=== PATIENT | female | born 1990 | race Caucasian/White ===

== ENCOUNTER → 2021-01-07 16:09 | Outpatient (CLI) | payer OTHER, SELFPAY ==
[2021-01-09 18:25] LABS: H. pylori Breath Test Negative (Negative)
== END ==
PROVIDERS: Visit Provider Nurse Practitioner Family
DX: R10.13 Epigastric pain (principal); R11.2 Nausea with vomiting, unspecified
CPT/HCPCS: 83013

== ENCOUNTER 2021-08-29 12:02 | Emergency (ER) | payer OTHER, SELFPAY ==
[2021-08-29 14:13] VITALS: BP 146/76; PULSE 87; RESP 18; TEMP 37; O2SAT 100; BMI 42.9
--- NOTE | 2021-08-29 14:32 | HMH.EDUTC ---
[facility] [place] Clinical Impression: Bronchitis, Viral syndrome Pharyngitis Qualifiers: Pharyngitis/tonsillitis etiology: unspecified etiology Qualified Code(s): J02.9 - Acute pharyngitis, unspecified Disposition: Home, Self-Care Condition on Discharge: Good Instructions: DI for Pharyngitis/Tonsillopharyngitis -- Adult, DI for Acute Bronchitis, DI for COVID-19 (Suspected or Confirmed ), Preventing the Spread of Coronavirus Discharge Instructions Additional Instructions: Drink plenty of fluids. Take tylenol or ibuprofen for pain or fever. Take the medications as directed. Follow up with your regular doctor. GO TO THE ER FOR ANY WORSENING SYMPTOMS Quarantine until you know the results of your covid-19 test. If it is positive, the health department should call you and give you further instructions about your length of Quarantine and other things. Notify your school or workplace of your results and follow their instructions regarding return to work/school. Prescriptions: Brompheniramine/Pseudoephed/Dm [Bromfed Dm Cough Syrup] 5 ml PO Q6HP PRN #240 ml PRN Reason: Cough [id number] methylPREDNISolone [Medrol] 4 mg PO DIRECTED 6 Days #21 packet Transmission Status: [id number] Azithromycin [Z-Jamir 250mg Tab*] 250 mg PO UD DOSE PK #6 tab Transmission Status: [id number] Referrals: Edita Randolph APRN [Primary Care Provider] - Time of Disposition: 15:20 Medical Decision Making - Medical Records Medical records reviewed: No: I reviewed the patient's medical records. - Juno Inquiry Pt receiving controlled substance: No Vital Signs: 08/29/21 14:13 08/29/21 15:02 Temperature 98.6 F 98.6 F Temperature Source Oral Pulse Rate 87 Pulse Rate [Left] 87 Respiratory Rate 18 18 Blood Pressure 146/76 H Blood Pressure [Right Arm] 146/76 H Blood Pressure Mean [Right Arm] 99 02 Sat by Pulse Oximetry 100 - Lab Data Lab results reviewed: Yes: I reviewed the patient's lab results. Lab Results 08/29/21 15:01: Strep Scn Rapid Clinic Negative Orders (Tests/Meds): ORDERS Category Date Time Status Covid-19 Nasal PCR ([facility]) Routine Lab 08/29/21 14:08 Received Strep Screen Confirmation Routine Micro 08/29/21 15:01 Received [facility] UTC HPI - General Stated complaint: sinus congestion Time Seen by Provider: 08/29/21 14:32 Mode of Arrival: Ambulatory Source of Information: Patient Limitations: No Limitations Description of Symptoms (Recalled from Triage Doc. by RN): pt c/o a sinus drainage/congestion and cough. direct exposure to covid. HEENT Symptoms (Recalled from RN notes): Yes (nasal drainage and congestion) Resp Symptoms (Recalled from RN notes): No Skin Symptoms (Recalled from RN notes): No MS Symptoms (Recalled from RN notes): No Functional Status (Recalled from RN notes): na - History of Present Illness Provider Complaint: She has had sore throat, sinus congestion, and a cough for the past 2 days. She has had chilling but no documented fever. - Related Data Previous Rx's Medication Instructions Recorded Azithromycin [Z-Jamir 250mg Tab*] 250 mg PO UD DOSE PK #6 tab 08/29/21 Brompheniramine/Pseudoephed/Dm 5 ml PO Q6HP PRN #240 ml 08/29/21 [Bromfed Dm Cough Syrup] methylPREDNISolone [Medrol] 4 mg PO DIRECTED 6 Days #21 08/29/21 packet Allergies Allergy/AdvReac Type Severity Reaction Status Date / Time No Known Allergies Allergy Verified 08/29/21 15:00 - Worker's Comp Is this a Worker's Comp case?: No [facility] History - Hepatitis A Screen Drug use history?: No High risk sexual behaviors?: No History of sexually transmitted infection?: No Currently employed?: No Childcare worker?: No Do you have indoor plumbing?: Yes Do you have electricity?: Yes Attestation statement:: This patient has been screened for Hepatitis A risk factors. I have reviewed the patient's past
[2021-08-29 15:02] VITALS: BP 146/76; PULSE 87; RESP 18; TEMP 37
[2021-08-29 15:11] LABS: UTC Strep Screen (Rapid) Negative (Negative)
== END 2021-08-29 15:32 | disposition home or self-care (01) ==
PROVIDERS: Emergency Provider Nurse Practitioner Family; PCP Nurse Practitioner Family
DX: J20.9 Acute bronchitis, unspecified (principal); Z20.822 Contact with and (suspected) exposure to COVID-19
CPT/HCPCS: 87880; 99203; C9803; G0463; U0003; U0005

== ENCOUNTER 2024-12-29 04:19 | Emergency (ER) | payer OTHER, SELFPAY ==
[2024-12-29 04:35] VITALS: BP 120/65; PULSE 109; RESP 20; TEMP 36.9; O2SAT 98; BMI 36.1
--- NOTE | 2024-12-29 04:36 | HMH.EDGENADL ---
Discharge Plan Disposition Patient Disposition: Home, Self-Care Prescriptions Prescriptions: No Action azithromycin 250 MG tablet 250 mg PO UD DOSE PK Qty: 6 0RF Rx Instructions: Take two (2) tablets today, then one (1) tablet days #2 thru #5 methylprednisolone 4 MG tablets,dose pack 4 mg PO DIRECTED 6 Days Qty: 21 0RF knqwnqljwynfhat-oavjndewt-VF 118 ML syrup 5 ml PO Q6HP PRN (Reason: Cough) Qty: 240 0RF Referrals Follow up/Referrals: Jacqueline Mccall APRN [Primary Care Provider] - See instructions Activity Restrictions/Add. Instructions Additional Instructions/Restrictions: Please follow-up with your primary care provider. Please return to the emergency department if you develop any new or worsening symptoms or become concerned for your health. Clinical Impressions Clinical Impression: Exposure to blood-borne pathogen Instructions Patient Instructions: DI for Skin Abscess Print Language Print Language: Occitan Discharge ED Provider: Fede Beckman General Adult HPI General Chief complaint: Skin/Abscess/Foreign Body Stated complaint: WC Right wrist injury 12/29/24 0330 Time Seen by Provider: 12/29/24 04:20 History of Present Illness HPI narrative: 34-year-old female without significant past medical history presents for blood-borne exposure. 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 The patient had dried blood under her fingers from injuring herself. The nurse has abrasion with broken skin as a result of the scratches. Related Data Previous Rx's ?Medication ?Instructions ?Recorded azithromycin 250 mg tablet 250 mg PO UD DOSE PK #6 tabs 08/29/21 mecaujafvfdomgy-vohpccfteigveyw-CZ 5 ml PO Q6HP PRN Cough #240 mL 08/29/21 2 mg-30 mg-10 mg/5 mL oral syrup methylprednisolone 4 mg tablets in 4 mg PO DIRECTED 6 days #21 08/29/21 a dose pack packets Allergies Allergy/AdvReac Type Severity Reaction Status Date / Time No Known Allergies Allergy Verified 08/29/21 15:00 [facility] Disclaimer: The information contained in this section may have been updated after the patient was seen, as this information can be updated by other users. Social History Smoking Status: Current every day smoker alcohol intake: never current occupational status: employed Travel in the last 8 weeks: None ROS Obtained: Yes All systems reviewed & no additional complaints except as documented Physical Exam General General appearance: alert and in no apparent distress Head Head exam: atraumatic and normocephalic Eye Eye exam: Present normal appearance, PERRL and EOMI ENT ENT exam: Present normal oropharynx and normal external ear exam Neck Neck exam: Present normal inspection and full ROM Chest Chest inspection: Present normal inspection and symmetric chest wall rise; Absent tenderness Respiratory Respiratory exam: Present normal lung sounds bilaterally; Absent respiratory distress Cardiovascular Cardiovascular exam: Present regular rate and normal rhythm Abdominal Exam Abdominal exam: Present soft; Absent distention, tenderness or guarding Extremities Exam Extremities exam: Present normal inspection; Absent edema or joint swelling Back Exam Back exam: Present normal inspection; Absent tenderness Neurological Exam Neurological exam: Present alert and oriented X3; Absent motor sensory deficit Psychiatric Psychiatric exam: Present normal affect and normal mood Skin Skin exam: Present warm, dry, normal color and other (Scratches/abrasions to the right wrist) Lymphatic Lymphatic Findings: no adenopathy Medical Decision Making Medical Records Medical records reviewed: Yes I reviewed the patient's medical records. Screening: Per USPSTF and CDC recommendations, given the prevalence of disease in our region, it is our hospital?s policy to screen for HIV and viral Hepatitis for all patients aged 18 and over and those with ongoing risk factors. Juno Inquiry Pt receiving controlled substance: No Juno was queried for this patient: No Vital Signs: 12/29/24 04:35 12/29/24 05:19 Temperature 98.5 F 98.5 F Temperature Source Oral Pulse Rate 109 H Pulse Rate [Right] 109 H Respiratory Rate 20 20 Blood Pressure 120/65 Blood Pressure [Right Arm] 120/65 Blood Pressure Mean [Right Arm] 83 02 Sat by Pulse Oximetry 98 Oxygen Delivery Method Room Air Room Air Lab Data Lab results reviewed: Yes I reviewed the patient's lab results. Lab Results 12/29/24 04:47: Urine Opiates Screen Negative, Urine Methadone Screen Negative, Ur Barbituates Screen Negative, Ur Phencyclidine Scrn Negative, Ur Amphetamines Screen Negative, U Benzodiazepines Scrn Negative, Urine Cocaine Screen Negative, U Marijuana (THC) Screen Negative 12/29/24 04:57: WBC 9.7, RBC 5.07, Hgb 14.8, Hct 43.3, MCV 85.4, MCH 29.2, MCHC 34.2, RDW 12.7, Plt Count 409, MPV 9.9, Neut % (Auto) 69.7, Lymph % (Auto) 23.9, [place] % (Auto) 5.2, Eos % (Auto) 0.7, Baso % (Auto) 0.3, Neut # (Auto) 6.7, Lymph # (Auto) 2.3, [place] # (Auto) 0.5, Eos # (Auto) 0.1, Baso # (Auto) 0.0, PT 11.6, INR 1.04, APTT 31.3 H, Sodium 137, Potassium 3.7, Chloride 105, Carbon Dioxide 22, Anion Gap 13.7, BUN 10, Creatinine 0.70, Estimated Creat Clear 162, Estimated GFR 95, Est GFR ( Amer) 115, Glucose 91, Calcium 9.7, Total Bilirubin 0.5, AST 46 H, ALT 19, Alkaline Phosphatase 101, Total Protein 7.9, Albumin 4.9, Globulin 3.0, Albumin/Globulin Ratio 1.6, HCV Ab ABDIFATAH w/Rflx PCR Qn Negative, HIV Ag/Ab Combo Qual Negative 12/29/24 04:57 12/29/24 04:57 Orders (Tests/Meds): ED MEDICATIONS Discontinued Medications Generic Name Dose Route Start Last Admin Trade Name Freq PRN Reason Stop Dose Admin Tetanus/Reduced Diphtheria/Acell Pertussis 0.5 ml 12/29/24 05:22 12/29/24 05:30 Tet/Diphth/Pert-Adult 0.5ml Syringe IM 12/29/24 05:23 0.5 ml .ONCE ONE Administration ORDERS Category Date Time Status CBC w/Auto Diff [Complete Blood Count Auto Diff] Stat Lab 12/29/24 04:57 Completed CMP [Comprehensive Metabolic Panel] Stat Lab 12/29/24 04:57 Completed HIV Combo Routine Lab 12/29/24 04:57 Completed Hep B Surface Ab, Qual Stat Lab 12/29/24 04:57 Received Hepatitis B surface antigen screen [HBsAg Screen] Stat Lab 12/29/24 04:57 Received Hepatitis C Ab Qual. W/ RFX Stat Lab 12/29/24 04:57 Completed PT INR [Prothrombin Time INR] Stat Lab 12/29/24 04:57 Completed PTT [Activated Partial Thrombo Time] Stat Lab 12/29/24 04:57 Completed UDS [Drug Screen,Urine] Stat Lab 12/29/24 04:47 Completed Medical Decision Narrative: 34-year-old female with nonsignificant past medical history presents for possible blood-borne exposure after being scratched by patient with blood under her fingernail. History was obtained via interactive discussion with patient. On arrival, patient is [afebrile, hemodynamically stable, satting appropriately, alert, oriented x4, GCS 15], moving all extremities spontaneously. Full physical exam performed and significant for abrasions/scratches with some broken skin to the right wrist. Patient reports that she has up-to-date on hepatitis B vaccination, but does not know if she is up-to-date on tetanus. Differential includes but is not limited to HIV hep B hepatitis C tetanus. Per report, the patient was treated for hepatitis C in the past. No history of HIV or hepatitis B is known, her current viral status is unknown. Patient was given Tdap for symptomatic management and correction of underlying abnormalities. Workup initiated including CBC CMP PT PTT HIV and hepatitis screenings, UDS per protocol.. On re-evaluation, patient [remains afebrile, HD stable.] Laboratory workup independently interpreted by me and significant for no significant leukocytosis, normal coags, minimally elevated AST, UDS negative, viral screens negative. Given patient history, exam and workup, patient's presentation most likely represents possible blood-borne exposure. I had a interact discussion with patient regarding her presentation and workup. Recommend she follow-up with her PCP, no indication for postexposure prophylaxis at this time. The results of the offending patient's blood work also needs to be followed up.. Procedures Risk/Benefits of Procedure(s) Were Explained: Yes Critical Care Critical Care Time Critical Care Time: No
[2024-12-29 05:04] LABS: Barbiturates Screen,Urine Negative ng/ml (<200); Benzodiazepines Screen,Urine Negative ng/ml (<200)
[2024-12-29 05:05] LABS: Amphetamine/Metha Screen,Urine Negative ng/ml (<1000)
[2024-12-29 05:06] LABS: Basophils % 0.3 % (0.1-2.0); Eosinophils # 0.1 K/mm3 (0.0-0.4); Eosinophils % 0.7 % (0.1-12.0); Hematocrit 43.3 % (37.0-47.0); Hemoglobin 14.8 g/dL (12.2-16.2); Lymphocytes # 2.3 K/mm3 (0.7-4.5); Lymphocytes % 23.9 % (10-50); Mean Corpuscular HGB Conc 34.2 g/dL (31.8-35.4); Mean Corpuscular Hemoglobin 29.2 pg (27.0-31.2); Mean Corpuscular Volume 85.4 fl (81-99); Mean Platelet Volume 9.9 fl (7.4-10.4); Monocytes # 0.5 K/mm3 (0.1-1.0); Monocytes % 5.2 % (1.7-9.3); Neutrophils # 6.7 K/mm3 (1.8-7.8); Neutrophils % 69.7 % (37.0-80.0); Platelet Count 409 K/mm3 (142-424); Red Blood Count 5.07 M/mm3 (4.20-5.40); Red Cell Distribution Width 12.7 % (11.5-17.5); White Blood Count 9.7 K/mm3 (4.8-10.8)
[2024-12-29 05:06] LABS: Cannabinoid Screen,Urine Negative ng/ml (<50); Cocaine Screen,Urine Negative ng/ml (<300)
[2024-12-29 05:07] LABS: Methadone Screen,Urine Negative ng/ml (<300)
[2024-12-29 05:08] LABS: Opiate Screen,Urine Negative ng/ml (<300); Phencyclidine Screen,Urine Negative ng/ml (<25)
[2024-12-29 05:13] LABS: Albumin Level 4.9 g/dl (3.5-5.0); Chloride 105 mmol/L (98-107)
[2024-12-29 05:14] LABS: Potassium 3.7 mmoL/L (3.5-5.1); Sodium 137 mmol/L (136-145)
[2024-12-29 05:16] LABS: Alanine Aminotransferase 19 U/L (12-78); Albumin/Globulin Ratio 1.6 (1.1-1.8); Alkaline Phosphatase 101 U/L (38-126); Anion Gap 13.7 mEq/L (5-15); Aspartate Amino Transferase 46 U/L (14-36); Bilirubin,Total 0.5 mg/dl (0.2-1.3); Blood Urea Nitrogen 10 mg/dl (7-17); Carbon Dioxide 22 mmol/L (22.0-30.0); Creatinine Clearance Estimated 162 mL/min (50-200); Estimated Glomerular Filt Rate 95 ml/min (>60); GFR (African American) 115 ML/MIN (>60); Total Protein,Serum 7.9 g/dl (6.3-8.2)
[2024-12-29 05:17] LABS: Calcium 9.7 mg/dl (8.4-10.2); Glucose 91 mg/dl (74-100)
[2024-12-29 05:18] LABS: Activated Partial Thrombo Time 31.3 seconds (22.8-30.6); INR 1.04 (0.9-1.1); Prothrombin Time 11.6 seconds (10.1-12.5)
[2024-12-29 05:19] VITALS: BP 120/65; PULSE 109; RESP 20; TEMP 36.9; O2SAT 98
[2024-12-29] MEDS: TET/DIPHTH/PERT-ADULT 0.5ML SYRINGE 0.5 ML IM (05:30)
[2024-12-29 06:06] LABS: HIV Combo NEGATIVE (Negative)
[2024-12-29 06:13] LABS: Hepatitis C Ab Qual. W/ RFX NEGATIVE (Negative)
[2024-12-30 11:25] LABS: Hep B Surface Ab, Qual Non Reactive (.); Hepatitis B Surface Antigen Negative (Negative)
== END 2024-12-29 05:31 | disposition home or self-care (01) ==
PROVIDERS: Emergency Provider Emergency Medicine; PCP Nurse Practitioner Family
DX: Z77.21 Contact with and (suspected) exposure to potentially hazardous body fluids (principal); Z23 Encounter for immunization
CPT/HCPCS: 80053; 80307; 85025; 85610; 85730; 86706; 86803; 87340; 87389; 90471; 90715; 99283

== ENCOUNTER 2025-04-20 13:11 | Outpatient (CLI) | payer OTHER, SELFPAY ==
[2025-04-20 22:13] LABS: Coronavirus 19, PCR Not Detected (NotDetected); Human Rhinovirus Not Detected (NotDetected); Influenza A, PCR Not Detected (NotDetected); Influenza B, PCR Not Detected (NotDetected); Respiratory Syncytial Virus Not Detected (NotDetected)
--- OUTSIDE RECORDS SUMMARY | 2025-04-22 13:16 | XMS_ITS | Data Portability ---
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 [facility] ([facility]) [address] [facility], [place], [address], 06/04/2024 07:07:51 08/21/2008/22/2024 NUSWA B VAGIN ITIS PLUS (VG+) atopobium vaginae Low - 0 score Not Available [facility] ([facility]) [address] [facility], [place], [address], 08/22/2024 22:07:28 08/21/2008/22/2024 NUSWA B VAGIN ITIS PLUS (VG+) bvab 2 Low - 0 score Not Available [facility] ([facility]) [address] [place], [address], 08/22/2024 22:07:28 08/21/2008/22/2024 NUSWA B VAGIN ITIS PLUS (VG+) megasphaera 1 Low - 0 score Calcu late total score by marilee lopez the 3 indiv idual bacte rial vagin osis (BV) marke r score s toget her. Total score is inter prete d as follo ws: Total score 0-1: Indic ates the absen ce of BV. Total score 2: Indet ermin ate for BV. Addit ional clini kezia data stephanyul d be evalu ated to estab estefanía christian ostyler. Total score 3-6: Indic ates the prese nce of BV. Not Available [facility] ([facility]) [address] [facility], [place], [address], 08/22/2024 22:07:28 08/21/2008/22/2024 NUSWA B VAGIN ITIS PLUS (VG+) rishabh albicans, TYLER Negati ve negati ve Not Available [facility] ([facility]) [address] [place], [address], 08/22/2024 22:07:28 08/21/2008/22/2024 NUSWA B VAGIN ITIS PLUS (VG+) rishabh glabrata, TYLER Negati ve negati ve Not Available [facility] ([facility]) [address] [place], [address], 08/22/2024 22:07:28 08/21/2008/22/2024 NUSWA B VAGIN ITIS PLUS (VG+) trich vag by TYLER Negati ve negati ve Not Available [facility] ([facility]) [address] [place], [address], 08/22/2024 22:07:28 08/21/2008/22/2024 NUSWA B VAGIN ITIS PLUS (VG+) chlamydia trachomatis, TYLER Negati ve negati ve Not Available [facility] ([facility]) [address] [place], [address], 08/22/2024 22:07:28 08/21/2008/22/2024 NUSWA B VAGIN ITIS PLUS (VG+) neisseria gonorrhoeae, TYLER Negati ve negati ve Not Available [facility] ([facility]) [address] [place], [address], 08/22/2024 22:07:28 08/21/20 08/22/2024 IGP, APTIM A HPV, RFX 16/18 ,45 HPV aptima Negati ve negati ve This nucle ic acid ampli ficat ion test detec ts fourt een high- risk HPV types (16,1 8,31, 33,35 ,39,4 5,51, 52,56 ,58,5 9,66, 68) witho ut diffe renti ation . Not Available [facility] ([facility]) [address] [facility], [place], [address], 08/28/2024 16:15:20 08/21/20 24 08/28/2024 IGP, APTIM A HPV, RFX 16/18 ,45 diagnosis: Commen t NEGAT MARLIN FOR INTRA EPITH ELIAL LESIO N OR MALIG YUE . SPECI MEN REPRO CESSE D FOR INTER PRETA TION USING GLACI AL ACETI C ACID (GAA) . Not Available [facility] ([facility]) [address] [facility], [place], [address], 08/28/2024 16:15:20 08/21/20 24 08/28/2024 IGP, APTIM A HPV, RFX 16/18 ,45 specimen adequacy: Commen t Satis facto ry for evalu ation . Endoc ervic al and/o r squam ous metap lasti c cells (endo cervi kezia compo nent) are prese nt. Areas of parti ally obscu ring blood are prese nt. Not Available [facility] ([facility]) [address] [facility], [place], [address], 08/28/2024 16:15:20 08/21/20 24 08/28/2024 IGP, APTIM A HPV, RFX 16/18 ,45 clinician provided ICD10: Commen t Z12.4 Not Available [facility] ([facility]) [address] [facility], [place], [address], 08/28/2024 16:15:20 08/21/20 24 08/28/2024 IGP, APTIM A HPV, RFX 16/18 ,45 performed by: iNck Ramos ws, Cytot monico mendoza (ASCP ) Not Available [facility] ([facility]) [address] [place], [address], 08/28/2024 16:15:20 08/21/20 24 08/28/2024 IGP, APTIM A HPV, RFX 16/18 ,45 . . Not Available [facility] ([facility]) [address] [place], [address], 08/28/2024 16:15:20 08/21/20 24 08/28/2024 IGP, APTIM A HPV, RFX 16/18 ,45 note: Nick mendoza The Pap smear is a scree ac test desig mauricio to aid in the detec tion of shruthi ligna nt and malig nant condi tions of the uteri ne cervi x. It is not a diagn ostic proce dure and shoul d not be used as the sole means of detec ting cervi kezia cance r. Both false -posi tive and false -nega tive repor ts do occur . Not Available [facility] ([facility]) [address] [facility], [place], [address], 08/28/2024 16:15:20 08/21/20 24 08/28/2024 IGP, APTIM A HPV, RFX 16/18 ,45 test methodology: Nick mendoza This liqui d based ThinP rep(R ) pap test was scree mauricio with the use of an image guide radha aguero. Not Available [facility] ([facility]) [address] [place], [address], 08/28/2024 16:15:20 08/21/20 24 08/28/2024 IGP, APTIM A HPV, RFX 16/18 ,45 HPV genotype reflex Ncik mendoza Crite melissa not met, HPV Genot ype not perfo rmed. Not Available [facility] ([facility]) [address] [facility], [place], [address], 08/28/2024 16:15:20 Result Notes None recorded. Problems Name Problem SNOMED Code Status Onset Date Resolution Date Notes Provider Name and Address Organization Details Recorded Time Anxiety disorder 695475907 Active 2023 Jacqueline Mccall, [employer] [address], [place], [address], [place] - [facility] 4 10:09:52 Depressive disorder 58171072 Active 2023 Avtorimakenna Rolandfantasmagus, [employer] [address], [place], [address], [place] [facility] 4 10:10:01 Prediabetes 106454914 Active 2023 Avtorimakenna Mccall, [employer] [address], [place], [address], [place] [facility] 4 10:10:10 Vaginal odor 984235656 Active 2023 Shara SheehanCAROLINAN [address], [place], [address], [place] [facility] 4 15:24:04 Body mass index 40+ - severely obese 896178321 Active 2023 Shara KumarckerCAROLINAN [address], [place], [address], [place] [facility] 4 15:24:36 Hypertensive disorder 48180919 Active 2023 Shara AguilaCAROLINA cartwrightN [address], [place], [address], [place] [facility] 4 15:24:54 Problem Notes None recorded. Procedures Surgical History Date Name Laterality Status Provider Name and Address Organization Details Recorded Time 08/21/20 24 Date of Last Pap Smear completed Shara Sheehan APRN [address], [place], [address], [place] - [facility] 08/28/2024 16:33:13 08/28/20 17 Nexplanon Removal completed Shara Sheehan APRN [address], [place], [address], [place] [facility] 08/28/2017 15:23:17 07/31/20 17 IUD Insertion (Mirena) completed Shara Sheehan, [employer] [address], [place], [address], [facility] - [facility] 07/31/2017 13:44:57 07/31/20 17 IUD Insertion completed Jasmin Drake [place] - [facility] 08/21/2024 14:21:05 12/22/19 16 Contraceptive Implant Insertion completed Dilciayamileth Patton [employer] [address], [place], [address], [facility] - [facility] 04/18/2017 15:51:51 12/09/19 14 Caesarean Section completed Shara Aguila, [employer] [address], [place], [address], [facility] 08/21/2024 14:33:00 12/09/19 14 delivery completed Rayna Conner [place] - [facility] 04/20/2017 10:39:07 Imaging Results None recorded. Procedure Notes None recorded. Medical Equipment None Reported. Allergies No known drug allergies Medications Name Sig Start Date Stop Date Status Note LastModified by Organization Details LastModified Time amoxicill in 500 mg capsule take 1 capsule (500 mg) by oral route every 8 hours for 10 days 09/25 completed amoxicil romeo 500 mg oral capsule; Recorded Status: Recorded on: 05/04/20 10 3:12PM;D iscontin ued Status: Disconti nued on: 09/25/20 12 1:33PM;U ser: poczatek b;Est. Completi on: 05/14/20 10;Indic ation: Acute Bacteria l Sinusiti s - (4619 );Prin rylan: 05/04/20 10 Not Available Not Available Not Available Mirena 21 mcg/24 hr (up to 8 years) 52 mg intrauter ine device Take 1 device by intraute rine route. 2016 active Not Available Not Available Not Avai lable azithromy wendi 250 mg tablet TAKE 2 TABLETS BY MOUTH ON DAY 1, AND THEN TAKE 1 TABLET BY MOUTH ONCE A DAY ON DAY 2 THROUGH DAY 5 06/03 completed Not Available Not Available Not Available glyburide 5 mg tablet take 1 tablet (5 mg) by oral route once daily before breakfas t 01/22 completed glyburid e 5 mg oral tablet;R ecorded Status: Recorded on: 11/06/19 14 2:09PM;D iscontin ued Status: Disconti nued on: 01/23/20 14 10:08AM; User: osmany ;Indicat ion: Gestatio nal Diabetes ,antepar bella - (648.83) ;Printed : 11/06/19 14 Not Available Not Available Not Available Flonase 50 mcg/actua tion nasal spray,chavo pension inhale 1 spray in each nostril by intranas al route once daily for 30 days 09/25 completed Flonase 50 mcg/actu ation nasal spray,najera spension ;Recorde d Status: Recorded on: 05/04/20 10 3:12PM;D iscontin ued Status: Disconti nued on: 09/25/20 12 1:33PM;U ser: poczatek b;Est. Completi on: 11/30/19 11;Print ed: 05/04/20 10 Not Available Not Available Not Available phentermi ne 37.5 mg tablet TAKE 1 TABLET BY MOUTH ONCE DAILY 08/19 completed Not Available Not Available Not Available prednison e 10 mg tablets in a dose pack 07/17 completed Not Available Not Available Not Available meloxicam 7.5 mg tablet 07/17 completed Not Available Not Available Not Available lancets use as directed 01/22 completed lancets; Recorded Status: Recorded on: 09/23/20 13 3:40PM;D iscontin ued Status: Disconti nued on: 01/23/20 14 10:08AM; User: [facility]; Est. Completi on: 01/22/20 14;Indic ation: - (-5);Lizabeth nted: 09/23/20 13 Not Available Not Available Not Available Depo-Prov era 150 mg/mL intramusc ular suspensio n inject 150 mg by intramus cular route every 3 months for 90 days 12/30 completed Depo-Pro vera 150 mg/mL intramus cular suspensi on;Presc ribe Status: Prescrib ed on: 08/19/20 15 4:27PM;D iscontin ued Status: Disconti nued on: 12/31/19 16 4:37PM;U ser: melba; Est. Completi on: 11/17/19 16;Pharm acyVerif ied: 08/19/20 15 4:27PM Not Available Not Available Not Available dicyclomi ne 20 mg tablet 07/17 completed Not Available Not Available Not Available calcipotr iene 0.005 % topical cream 07/17 completed Not Available Not Available Not Available lisinopri l 10 mg tablet TAKE ONE TABLET BY MOUTH EVERY DAY 2024 active Not Available Not Available Not Avai lable promethaz ine 25 mg tablet 07/17 completed Not Available Not Available Not Available bupropion HCl 75 mg tablet TAKE ONE TABLET BY MOUTH TWICE DAILY FOR ANXIETY 2024 active Not Available Not Available Not Avai lable alcohol swabs use prior to testing 01/22 completed alcohol swabs Topical Pads, Medicate d;Record ed Status: Recorded on: 09/23/20 13 3:40PM;D iscontin ued Status: Disconti nued on: 01/23/20 14 10:08AM; User: [email or web address]; Est. Completi on: 01/22/20 14;Print ed: 09/23/20 13 Not Available Not Available Not Available methylpre dnisolone 4 mg tablets in a dose pack TAKE BY MOUTH DIRECTED ON INSIDE OF PACKAGE 08/19 completed Not Available Not Available Not Available brompheni ramine-ps eudoephed rine-DM 2 mg-30 mg-10 mg/5 mL oral syrup TAKE 10 ML BY MOUTH EVERY 12 HOURS 06/03 completed Not Available Not Available Not Available ondansetr on 4 mg disintegr ating tablet 07/17 completed Not Available Not Available Not Available cefdinir 300 mg capsule 07/17 completed Not Available Not Available Not Available metformin ER 500 mg tablet,ex tended release 24 hr TAKE ONE TABLET BY MOUTH EVERY DAY 2024 active Not Available Not Available Not Avai lable amoxicill in 875 mg-potass ium clavulana te 125 mg tablet take 1 tablet by oral route every 12 hours for 10 days 07/17 completed Not Available Not Available Not Available Shayla Perle 100 mg capsule take 1-2 capsules by oral route 3 times a day as needed 09/25 completed Replaced /Retired Drug 100 mg oral capsule; Recorded Status: Recorded on: 05/04/20 10 3:12PM;D iscontin ued Status: Disconti nued on: 09/25/20 12 1:33PM;U ser: poczatek b;Indica tion: Cough - (16.7862 00);Prin rylan: 05/04/20 10 Not Available Not Available Not Available Test Strips test fasting, 2 hours after breakfas t, lunch and supper 01/22 completed Test strips;R ecorded Status: Recorded on: 09/23/20 13 3:40PM;D iscontin ued Status: Disconti nued on: 01/23/20 14 10:08AM; User: [facility]; Est. Completi on: 01/22/20 14;Indic ation: - (-5);Lizabeth nted: 09/23/20 13 Not Available Not Available Not Available Depo-Prov era 150 mg/mL intramusc ular syringe inject 1 millilit er (150 mg) by intramus cular route every 3 months 05/04 completed Depo-Pro vera 150 mg/mL intramus cular syringe; Recorded Status: Recorded on: 11/05/19 10 10:24AM; Disconti nued Status: Disconti nued on: 05/04/20 10 2:59PM;U ser: [email or web address] Not Available Not Available Not Available 11/11 (21) 1 mg-20 mcg tablet 07/17 completed Not Available Not Available Not Available Ortho-Cyc leonela (28) 0.25 mg-35 mcg tablet take 1 tablet by oral route once daily 09/25 completed Ortho-Cy clen (28) 0.25-35 mg-mcg oral tablet;R ecorded Status: Recorded on: 05/04/20 10 2:59PM;D iscontin ued Status: Disconti nued on: 09/25/20 12 1:33PM;U ser: hamptona ;Indicat ion: Pregnanc y Contrace ption - (18.V259 00) Not Available Not Available Not Available nitrofura ntoin monohydra te/macroc rystals 100 mg capsule 07/17 completed Not Available Not Available Not Available 27 mg iron-0.8 mg tablet take 1 tablet by oral route once daily 04/21 completed 27-0.8 mg oral tablet;R ecorded Status: Recorded on: 04/24/20 13 11:07AM; Disconti nued Status: Disconti nued on: 04/21/20 14 11:26AM; User: [email or web address];In dication : Pregnanc y - (18.V222 00) Not Available Not Available Not Available Glucomete r-M use as directed 01/22 completed Glucomet er;Recor ded Status: Recorded on: 09/23/20 13 3:40PM;D iscontin ued Status: Disconti nued on: 01/23/20 14 10:08AM; User: [facility]; Est. Completi on: 12/23/19 14;Indic ation: - (-5);Lizabeth nted: 09/23/20 13 Not Available Not Available Not Available Nexplanon 68 mg subdermal implant implant 1 by subderma l route every 3 years 08/28 completed Nexplano n 68 mg subderma l implant; Recorded Status: Recorded on: 12/09/19 16 4:27PM;U ser: youngk;I ndicatio n: Contrace ption counseli ng: Initiati on of contrace ptive implant prescrip tion - (V25.02) Not Available Not Available Not Available melatonin 1 mg sublingua l tablet Place 1 tablet every day by sublingu al route as needed. 08/19 completed Not Available Not Available Not Available Ozempic 0.25 mg or 0.5 mg (2 mg/1.5 mL) subcutane ous pen injector Inject 0.25 mg every week by subcutan eous route. 02/05 completed Not Available Not Available Not Available Ozempic 0.25 mg or 0.5 mg (2 mg/3 mL) subcutane ous pen injector 02/05 completed Not Available Not Available Not Available Vitals Date Recorded Body height Body mass index (BMI) Body weight Body temperature Heart rate Oxygen saturation Oxygen saturation in Arterial blood by Pulse oximetry Respiratory rate Systolic And Diastolic Provider Name and Address Organization Details Last Updated DateTime 4 165.1 cm 45.3 kg/m2 536994. 12 g 97.8 [degF] 78 /min 97 % 97 % 18 /min 132/76 mm[Hg] Amber Stears [place] - [facility] 4 09:06:28 Date Recorded Body height Body mass index (BMI) Body weight Body temperature Heart rate Oxygen saturation Oxygen saturation in Arterial blood by Pulse oximetry Respiratory rate Systolic And Diastolic Provider Name and Address Organization Details Last Updated DateTime 4 165.1 cm 44.3 kg/m2 357045. 57 g 96.6 [degF] 82 /min 98 % 98 % 18 /min 122/84 mm[Hg] Sandra Gillis [facility] 4 09:32:53 Date Recorded Body height Body mass index (BMI) Body weight Heart rate Oxygen saturation Oxygen saturation in Arterial blood by Pulse oximetry Respiratory rate Systolic And Diastolic Provider Name and Address Organization Details Last Updated DateTime 4 165.1 cm 43.6 kg/m2 380556. 2 g 88 /min 98 % 98 % 18 /min 128/80 mm[Hg] Sandra Gillis [facility] 4 08:31:42 Date Recorded Body height Body mass index (BMI) Body weight Body temperature Heart rate Respiratory rate Oxygen saturation Oxygen saturation in Arterial blood by Pulse oximetry Systolic And Diastolic Provider Name and Address Organization Details Last Updated DateTime 4 165.1 cm 42.6 kg/m2 196237. 65 g 97.8 [degF] 90 /min 18 /min 98 % 98 % 134/82 mm[Hg] Amber Stears [place] - [facility] 4 13:25:00 Date Recorded Body height Body mass index (BMI) Body weight Systolic And Diastolic Provider Name and Address Organization Details Last Updated DateTime 08/21/2024 165.1 cm 40.1 kg/m2 108059.76 g 130/86 mm[Hg] Jasmin Drake [place] - [facility] 08/21/2024 14:19:12 Social History Question Answer Notes LastModified by Organizat ion Details LastModified Time Tobacco Smoking Status Former Smoker maria l [place] - [facility] 07/17/2017 14:35:17 Do You Have An Advance Directive? No Information not available 07/17/2017 Are You Blind Or Do You Have Difficulty Seeing? No Information not available 11/21/2023 Is Blood Transfusion Acceptable In An Emergency? Yes Information not available 07/17/2017 What Is Your Level Of Caffeine Consumption? Heavy Information not available 07/17/2017 How Much Tobacco Do You Chew? None Information not available 07/17/2017 Are You Deaf Or Do You Have Serious Difficulty Hearing? No Information not available 11/21/2023 What Type Of Diet Are You Following? REGULAR Information not available 07/17/2017 Which Illicit Or Recreational Drugs Have You Used? Denies Information not available 07/17/2017 What Is The Highest Grade Or Level Of School You Have Completed Or The Highest Degree You Have Received? [id number] [email or web address] Information not available 08/21/2024 Have There Been Any Changes To Your Family Or Social Situation? No Information no t available 11/21/2023 What Is The Fluoride Status Of Your Home? Unknown Information not available 11/21/2023 When Did You Quit Smoking? 6-10yearssi [email or web address] rette Information not available 11/21/2023 Live Alone Or With Others? With Others Information not available 07/17/2017 Do You Have A Medical Power Of Logging Specialist? No Information not available 11/21/2023 What Was The Date Of Your Most Recent Tobacco Screening? 11/21/2023 Information not available 11/21/2023 How Many Children Do You Have? 1 Information not available 07/17/2017 What Is Your Current Pack Years? 10-19packye ars Information not available 11/21/2023 Performs Monthly Self-breast Exam? Yes Information no t available 07/17/2017 Do You Use Protection Against STDs? No [email or web address] Information not available 08/21/2024 What Is Your Relationship Status? Information not available 07/17/2017 Do You Use Your Seat Belt Or Car Seat Routinely? Yes [email or web address] Information not available 08/21/2024 Seat Belts Used Routinely Yes Information not available 07/17/2017 Are You Sexually Active? Yes Information not available 07/17/2017 Do You Have Smoke And Carbon Monoxide Detectors In Your Home? Yes Information not available 11/21/2023 At What Age Did You Start Smoking Tobacco? 13 Information not available 11/21/2023 Are You Passively Exposed To Smoke? No [email or web address] Information no t available 08/21/2024 How Much Tobacco Do You Smoke? No Information not available 11/21/2023 Do You Use Sunscreen Routinely? Yes Information not available 07/17/2017 Has Tobacco Cessation Counseling Been Provided? No Information not available 11/21/2023 How Many Years Have You Smoked Tobacco? 12 Age 13 To 25 [email or web address] Information not available 04/20/2017 Do You Have Difficulty Walking Or Climbing Stairs? No Information not available 11/21/2023 How Many Years Have You Used E-cigarettes Or Vape? 8 Information not available 11/21/2023 Sex: Female Functional Status Question Answer Note LastModified by Organizat ion Details LastModified Time How many times per week do you consume alcohol? Less than 1 time per week Information not available 11/21/2023 Do you or have you ever used smokeless tobacco? Never used smokeless tobacco Information not available 11/21/2023 Are you currently employed? Yes Information not available 07/17/2017 Do you have transportation difficulties? No Information not available 11/21/2023 Are you able to care for yourself? Yes Information n ot available 11/21/2023 Do you have difficulty dressing or bathing? No Information not available 11/21/2023 Do you or have you ever used e-cigarettes or vape? Current user of electronic cigarettes Information not available 11/21/2023 What is your exercise level? None Information not available 07/17/2017 Do you use any illicit or recreational drugs? No Information not available 11/21/2023 Do you or have you ever used any other forms of tobacco or nicotine? Yes Information not available 11/21/2023 What is your level of alcohol consumption? None [email or web address] Information not available 08/21/2024 Are you able to walk? YESWOREST Information not available 07/17/2017 Do you have difficulty doing errands alone? No Information not available 11/21/2023 What is your occupation? [employer] Information not available 11/21/2023 Mental Status Question Answer Note LastModified by Organizat ion Details LastModified Time Do you feel stressed (tense, restless, nervous, or anxious, or unable to sleep at night)? [id number] [email or web address] Information not available 08/21/2024 Do you have difficulty concentrating, remembering or making decisions? No Information no t available 11/21/2023 Family History Relationship Description Onset Age of this Age Resolved Age Notes LastModified by Organization Details LastModified Time Father Family history of diabetes mellitus [email or web address] Not available 2023 14:32:34 Father Family history of Hypertension [email or web address] Not available 14:32:34 Father Family history of Myocardial infarction [email or web address] Not available 08/21 14:32:34 Father Hypertensive disorder Not available 2023 14:32:34 Paternal Grandfather Family history of diabetes mellitus [email or web address] Not available 2023 14:32:34 Mother Arthritis [email or web address] Not availab le 08/21/2024 14:32:34 Medical History Condition Response Depression Y Obesity Y Hypercholesterolemia Y Diabetes Y Hypertension Y Gynecological History Statement/Question Response Abnormal Pap Y Flow Light Date of LMP 08/08/2024 Post Menopausal Bleeding N STIs/STDs N HPV Vaccine N Duration of Flow (days) 6 Current Control Method IUD Age at Menarche 10 Age at First Child 24 Last Annual Exam/Provider 08/21/24 w/DT Sexually Active? Y Date of Last Cervical Culture 08/21/2024 Menses Monthly Y Date of Last Pap Smear 08/21/2024 Sexual Problems? N LMP Approximate Hormone Replacement Therapy N Obstetrics History GPAL:G 2 P 1 0 1 1 Type Value Full Term 1 Spontaneous 1 Living 1 Total 2 Immunizations Vaccine Type Date Status Note Provider Nam e and Address Organization Details Recorded Time COVID-19, mRNA, LNP-S, PF, 50 mcg/0.5 mL dose 2 completed Sandra beaulieu, NUSRAT - [facility] 08/19/2022 13:58:36 influenza, unspecified formulation 4 completed Not Available [facility] 12/04/2023 09:17:39 Influenza, split virus, quadrivalent, PF 2 completed Sandra Gillis null, NUSRAT - [facility] 08/19/2022 10:33:32 COVID-19 vaccine, vector-nr, rS-Ad26, PF, 0.5 mL 1 completed Sandra beaulieu, [place] - [facility] 08/19/2022 10:33:32 Past Encounters Encounter ID Performer Location Encounter Start Date Encounter Closed Date Diagnosis/Indication Diagnosis SNOMED-CT Code Diagnosis ICD10 Code Diagnosis Note [id number] [facility] [address] [place] [address] 02/21/2005 00:00:00 [id number] [facility] [address] [place] [address] 05/30/2005 00:00:00 [id number] [facility] [address] [place] [address] 06/13/2005 00:00:00 [id number] [facility] [address] [place] [address] 07/19/2005 00:00:00 [id number] [facility] [address] [place] [address] 08/24/2005 00:00:00 [id number] [facility] [address] [place] [address] 08/31/2005 00:00:00 [id number] [facility] [address] [place] [address] 12/06/2007 00:00:00 [id number] [facility] [address] [place] [address] 11/05/2009 00:00:00 [id number] [facility] [address] [place] [address] 05/04/2010 00:00:00 [id number] [facility] [address] [place] [address] 09/25/2012 00:00:00 [id number] [facility] [address] [place] [address] 02/11/2013 00:00:00 [id number] [facility] [address] [place] [address] 02/21/2013 00:00:00 [id number] [facility] [address] [place] [address] 03/04/2013 00:00:00 [id number] [facility] [address] [place] [address] 04/24/2013 00:00:00 [id number] [facility] [address] [place] [address] 06/19/2013 00:00:00 [id number] [facility] [address] [place] [address] 12/17/2013 00:00:00 [id number] [facility] [address] [place] [address] 01/22/2014 00:00:00 [id number] [facility] [address] [place] [address] 04/21/2014 00:00:00 [id number] [facility] [address] [place] [address] 04/21/2014 00:00:00 [id number] [facility] [address] [place] [address] 10/29/2014 00:00:00 [id number] [facility] [address] [place] [address] 12/09/2015 00:00:00 [id number] [facility] [address] [place] [address] 12/31/2015 00:00:00 [id number] [facility] [address] [place] [address] 02/01/2016 00:00:00 [id number] KARON Carroll HOUSEHOLD ASSISTANT [address] [place] [address] N[place]AT [place]oto [address] 07/17/2017 14:23:51 07/17/2017 15:33:37 Irregular periods 25908232 N92.6 Contracept ion care management 864625156 Z30.[address]; plans removal d/t irregular bleeding and plan Mirena insertion [id number] KARON Carroll HOUSEHOLD ASSISTANT [address] [place] [address] [place] [address] 07/31/2017 13:07:21 07/31/2017 13:46:50 Insertion of intrauterine contraceptive device 14682041 Z30.913 [id number] KARON Carroll HOUSEHOLD ASSISTANT [address] [place] [address] [place] [address] 08/28/2017 12:44:17 08/28/2017 15:03:38 IUD check 026422809 Z30.[address] Removal of subcutaneous contraceptive done 2112220787 03293 Z30.46 Nexplanon removed [id number] Jacqueline Mccall APRN [address] [address] 08/19/2022 10:01:37 08/19/2022 11:41:55 History and physical examination, sports participation 683143890 Z02.5 Administra tion of SARS-CoV-2 antigen vaccine 497571589 Z23 [id number] Jacqueline Mccall [address] [address] 11/21/2023 07:59:17 11/21/2023 10:05:53 Anxiety 57725475 F41.9 Patient identified triggers for anxiety and impact of anxious thinking on functionin g. Discussed strategies to regulate symptoms and need for compliance with treatment. discussed med in detail. any issues or thoughts go to ed coco. discussed her calling for therapy appointmen t. Hypertensive disorder 38 835152 I10 labskeep log bring to next appointmen t Unintentio nal weight gain 0014425152 18232 R63.5 [id number] Jacqueline Mccall [address] [address] 12/04/2023 09:17:24 12/04/2023 10:08:28 Depressive disorder 40282515 F32.A Prediabetes 313772676 R7 3.03 discussed diet and medication in detail with pt Anxiety 79411481 F41.9 Patient identified triggers for anxiety and impact of anxious thinking on functionin g. Discussed strategies to regulate symptoms and need for compliance with treatment. discussed med in detail. any issues or thoughts go to ed coco. discussed her calling for therapy appointmen t. [id number] Jacqueline Mccall [address] [address] 02/06/2024 08:14:41 02/06/2024 09:12:00 Prediabetes 747417261 R73.03 discussed diet and medication in detail with pt Anxiety 40478773 F41.9 Patient identified triggers for anxiety and impact of anxious thinking on functionin g. Discussed strategies to regulate symptoms and need for compliance with treatment. discussed med in detail. any issues or thoughts go to ed coco. discussed her calling for therapy appointmen t. [id number] Jacqueline Mccall [address] [address] 06/03/2024 13:08:39 06/03/2024 14:18:53 Prediabetes 411052674 R73.03 discussed diet and medication in detail with pt Anxiety disorder 1667055 06 F41.9 Hypertensive disorder 38 309365 I10 labskeep log bring to next appointmen t [id number] KARON Carroll HOUSEHOLD ASSISTANT [address] [facility] [place] [address] 08/21/2024 14:08:44 08/21/2024 15:07:00 Counseling 187233680 Z71.82 Exercise beth perez Patient encouraged to exercise 30 minutes 5 days a week. Examinatio n of blood pressure 258649916 Z01.30 Routine gy necologic examination done 6387429741 9101 Z01.419 Depression screening 171 536668 Z13.31 Screening for malignant neoplasm of cervix 744723639 Z12.4 Diet education 67600951 Z71.3 Encourage healthy eating/dec reased fats, sugars, fried foods Screening for malignant neoplasm of breast 859287930 Z12.31 Contracept ion care management 462726084 Z30.[address]; due for removal 07/2025 Vaginal odor 214661631 N 89.8 Body mass index 40+ - severely obese 722261267 Z68.41 Morbid obesity 132986486 E66.01 Hypertensive disorder 38 843589 I10 Depressive disorder 3548 9007 F32.A Vaccination declined 455 5371021 Z28.21 Seasonal flu vaccine offered and declined Health Concerns Section Related Observation LastModified by Organization Detai ls LastModified Time None Recorded Concern Status LastModified by Organization Details LastModified Time None Recorded Advance Directives Directive N: Payers Insurance Date Sequence Insurance Name Policy Number Policy Walsh Covered Member ID Walsh Member ID Guarantor Name 09/03/2024 2 [facility] (MEDICAID O) Zoey A Paul [id number] Zoey A Paul 09/03/2024 1 U[employer] [id number] Zoey A Paul [id number] Zoey A Paul 09/03/2024 [place] - [facility] (MEDICAID) [id number] Zoey A Paul [id number] Zoey A [place] 08/06/2024 1 [place] [id number] Zoey A [place] [id number] Zoey A [place] 08/06/2024 2 [place] [id number] Zoey A [place] [id number] Zoey A Paul Notes Date Note Type Note Provider Name and Address Organization Details Recorded Time 11/21/2023 text/html 33 year old femmakenna gardiner who presents to the office today with concerns ofAdult check upanxiety-has never been on medicine, pt states she worries alot, has problems when off work and sitting at home states she does not like sitting she will stay gone all long because she does not want to sat at home. pt states she becomes anxious when her daughter has to go to md her anxiety increases. BP high at times, states can feel it coming on when BP is high, has not been keeping log, pt states she thinks her anxiety could be causing it to go up. 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 and thought it would improve once she was done but she finished in december and anxiety has not improved.discuss weight gain Avtorimakenna RolandKARON timmons [address], [place], [address], [email or web address] - [facility] 11/21/2023 10:40:35 12/04/2023 text/html Anxiety/Depressi onR eported bypatient.Severity: denies suicidal ideations; able to maintain relationships; does not interfere with activities of daily living Context:no major life stressors Associated Symptoms:denies homicidal ideations; no significant weight gain; no significant weight loss; no visual/auditory hallucinations; no delusions; no shortness of breath; mood good; no anxiety; no crying spells; no panic; no isolation; sleeping well; appetite good; energy good; no apathy; maintaining functionality 33 yr old female presents to follow up on lab results and anxiety. She is doing well on wellbutrin and needs to increase. pt states she has been dieting and not eating any carbs but her glucose has been running 130's. Jacqueline Mccall APRN [address], [place], [address], [email or web address] - [facility] 12/04/2023 10:12:41 02/06/2024 text/html 33 yr old female presents for med refills and lab work. pt states she is doing well no issues at this time. Jacqueline KARON timmons [address], [place], [address], [email or web address] - [facility] 02/06/2024 08:59:59 06/03/2024 text/html 34 year old pippa gardiner who presents to the office today with concerns ofhypertension- states BP at home and at work have been 150's over 90's. also has concerns of headache, bad indigestion, states hands and feet have been cold when bp is elevated, states symptoms ok at this time.past 3 days have felt really bad Jacqueline Mccall, KARON [address], [place], [address], [place] - [facility] 06/03/2024 13:56:39 08/21/2024 text/html Annual - MOBReported bypatient.History:L ast annual exam: 2016; no gynecologic complaints; no change in interval history Current Contraception:Satis fied with current contraception; Intrauterine device (iud) Preventive measures:Encourage self breast examination; Encourage regular exercise; Encourage no tobacco use; Followed with Q3 year pap smear and high risk HPV typing; All immunization are currentNotes:Zoey rto for AWE. She has Mirena and thought it was due to be removed. Her IUD was placed 07/2017. I informed her of new indication for Mirena use of 8 years instead of 5. She is not having any problems with her device and is very pleased with light periods. Her has considered vasectomy, however, she may have a new Mirena placed in 1 year for bleeding control.She agrees to baseline screening mammogram.She reports increased vaginal discharge and intermittent odor after menses. Pt presents today to discuss the removal of her Mirena IUD. IUD was placed 07/2017 Shara Sheehan APRN [address], [place], [address], [place] - [facility] 08/21/2024 21:59:11 OBGyn Episode Ob Episode Information Episode Created Date Number of Fetuses Patient Bloodtype Patient rh Status Prepregnancy Weight lbs Domestic Partner Domestic Partner Phone Father Name Agricultural Inspector Status 04/20/20 17 1 CLOSED Fetus Data First Name Last Name Admitted to NICU Weight (g) Sex Living Outcome Pediatric Complications Fetus ID Race Codes Race Delivery Type , Spontane ous [id number] Valeriy Calculation Initial Valeriy Date Initial Exam Date Initial Exam Provider Initial Ultrasound Date Last Menstrual Period Date Ultra Sound Weeks Gestation 0 Eighteen To Twenty Week Valeriy Update Ultra Sound Date Fundal Height At Umbil Quickening Date Ultra Sound Latest Weeks Gestation Final Valeriy Confirmed By Final Valeriy Confirmed Date Final Valeriy Date Ultra Sound Latest Days Gestation 0 0 Menstrual History Last Menstrual Date Menses Monthly On Bcp Conception Prior Menses Frequency Hcg Plus Date Menarche Onset Age Delivery Information Delivery Date Delivery Type Labor Anesthesia Weeks Gestation Incision Type Labor Labor Length Hrs Delivered By Post Complications Tubal Sterilization Discharge Date Comments 3 SAB beta followedt o <2. mdr Discharge Information Feeding Method Contraceptive Method Maternal HG B and HCT Levels Ob Episode Information Episode Created Date Number of Fetuses Patient Bloodtype Patient rh Status Prepregnancy Weight lbs Domestic Partner Domestic Partner Phone Father Name Agricultural Inspector Status 04/20/20 17 1 CLOSED Fetus Data First Name Last Name Admitted to NICU Weight (g) Sex Living Outcome Pediatric Complications Fetus ID Race Codes Race Delivery Type 3259.96 [id number] F Full Term 5625 Valeriy Calculation Initial Valeryi Date Initial Exam Date Initial Exam Provider Initial Ultrasound Date Last Menstrual Period Date Ultra Sound Weeks Gestation 0 Eighteen To Twenty Week Valeriy Update Ultra Sound Date Fundal Height At Umbil Quickening Date Ultra Sound Latest Weeks Gestation Final Valeriy Confirmed By Final Valeriy Confirmed Date Final Valeriy Date Ultra Sound Latest Days Gestation 0 0 Menstrual History Last Menstrual Date Menses Monthly On Bcp Conception Prior Menses Frequency Hcg Plus Date Menarche Onset Age Delivery Information Delivery Date Delivery Type Labor Anesthesia Weeks Gestation Incision Type Labor Labor Length Hrs Delivered By Post Complications Tubal Sterilization Discharge Date Comments 4 Regional-Ep idural 39 IOL for GDM, Pitinduct ion, FTPPrimar y c/s per SMO Discharge Information Feeding Method Contraceptive Method Maternal HG B and HCT Levels
== END 2025-04-20 23:59 | disposition home or self-care (01) ==
LOC: LAB.DROPOF 04-22 13:13
PROVIDERS: PCP Nurse Practitioner Family; Visit Provider Student in an Organized Health Care Education/Training Program
DX: R50.9 Fever, unspecified (principal)
CPT/HCPCS: 87631

== ENCOUNTER 2025-09-18 18:06 | Emergency (ER) | payer BC, SELFPAY ==
--- NOTE | 2025-09-18 18:08 | ECG_ITS ---
APPROVED REPORT Exam: Resting ECG HR:94 bpm ECG Measurements Heart Rate 94 AXES IL 160 P 77 QRSd 103 QRS 90 QT 351 T 77 QTc 403 Conclusion Normal sinus rhythm without acute ST or T wave changes concerning for ischemia Electronically signed by : Jasmin Ramirez, 09/19/2025 00:42:55
[2025-09-18 18:09] VITALS: BP 147/106; PULSE 97; RESP 18; O2SAT 100
--- NOTE | 2025-09-18 18:09 | HMH.EDGENADL ---
Discharge Plan Disposition Patient Disposition: Home, Self-Care Condition: Good Prescriptions Prescriptions: No Action metformin 500 mg tablet 500 mg PO DAILY bupropion HCl [Wellbutrin SR] 100 mg tablet sustained-release 12 hr 100 mg PO DAILY iaftrqjpzqpmklw-dpagrsqtk-BE [Bromfed DM] 2-30-10 mg/5 mL syrup 5 ml PO Q4-6H PRN (Reason: cold symptoms) Qty: 118 0RF lisinopril 10 mg tablet 10 mg PO DAILY Patient Comments: TAKE ONE TABLET BY MOUTH EVERY DAY penicillin V potassium 500 mg tablet 500 mg PO BID 10 Days Qty: 20 0RF Referrals Follow up/Referrals: Kodi Aguiar MD [Staff Physician, General Surgery] - See instructions Jacqueline Mccall APRN [Primary Care Provider, Medical] - See instructions Activity Restrictions/Add. Instructions Additional Instructions/Restrictions: I have sent you with a referral to general surgery if you continue to have pain after you eat. I would like you to start taking your Protonix daily for the next couple weeks to see if this helps with your symptoms as well. Return to the emergency department for any acute worsening symptoms Clinical Impressions Clinical Impression: Abdominal pain, epigastric, Chest pain Print Language Print Language: Cymraes Discharge ED Provider: Jasmin Ramirez Adult HPI General Chief complaint: PAIN Stated complaint: chest pain Time Seen by Provider: 09/18/25 18:09 History of Present Illness HPI narrative: Patient is a 35-year-old female with no significant past medical history who presented to the emergency department with epigastric and chest pain that started prior to arrival. Patient states that her symptoms started about 30 to 45 minutes after she ate Thanksgiving dinner. Patient states that it feels like reflux but significantly worse. Patient denies any lower abdominal pain. Patient denies any nausea or vomiting patient denies any diarrhea. Patient denies any fevers. Patient denies any recent surgeries. Patient denies any cardiac history. Related Data Home Medications ?Medication ?Instructions ?Recorded ?Confirmed bupropion HCl 100 mg tablet,12 hr 100 mg PO DAILY 04/20/25 04/30/25 sustained-release (Wellbutrin SR) metformin 500 mg tablet 500 mg PO DAILY 04/20/25 04/30/25 lisinopril 10 mg tablet 10 mg PO DAILY 04/30/25 04/30/25 Previous Rx's ?Medication ?Instructions ?Recorded rlundgunaxjjszb-githazdgkhsxeff-VJ 5 ml PO Q4-6H PRN cold symptoms 04/20/25 2 mg-30 mg-10 mg/5 mL oral syrup #118 mL (Bromfed DM) penicillin V potassium 500 mg 500 mg PO BID 10 days #20 tabs 04/30/25 tablet Allergies Allergy/AdvReac Type Severity Reaction Status Date / Time No Known Allergies Allergy Verified 04/30/25 13:54 [facility] Disclaimer: The information contained in this section may have been updated after the patient was seen, as this information can be updated by other users. Medical History (Updated 09/18/25 @ 22:17 by Jasmin Ramirez DO) Strep throat Hypertension Social History Smoking Status: Light tobacco smoker alcohol intake: never current occupational status: employed Travel in the last 8 weeks?: None Have you lived/traveled outside [place] in past 30 days?: No Contact w/someone who lives/traveled outside [place] past 30 days?: No Exposure to someone with infectious disease in past 14 days?: No Do you have a fever (greater than 100.4 F or 38 C)?: No Have you tested positive for COVID-19?: No Exposed to someone with COVID-19 in past 14 days?: No Do you have a sore throat?: No Do you have a cough?: No Do you have any weakness?: No Do you have any diarrhea?: No Are you experiencing any unusual bleeding?: No Do you have any muscle aches/pain?: No Do you have any abdominal pain?: No Are you experiencing loss of taste or smell?: No ROS Obtained: Yes All systems reviewed & no additional complaints except as documented and Yes Systems reviewed as appropriate & no additional complaints except as documented Physical Exam General General appearance: alert and in no apparent distress Head Head exam: atraumatic, normocephalic and normal inspection Eye Eye exam: Present normal appearance, PERRL and EOMI; Absent scleral icterus ENT ENT exam: Present normal exam and normal external ear exam Neck Neck exam: Present normal inspection and full ROM Chest Chest inspection: Present normal inspection and symmetric chest wall rise Respiratory Respiratory exam: Present normal lung sounds bilaterally; Absent respiratory distress or wheezes Cardiovascular Cardiovascular exam: Present regular rate, normal rhythm and normal heart sounds Abdominal Exam Abdominal exam: Present soft, distention and tenderness (epigastric and RUQ tenderness); Absent guarding or rebound Extremities Exam Extremities exam: Present normal inspection and full ROM Back Exam Back exam: Present normal inspection and full ROM Neurological Exam Neurological exam: Present alert and oriented X3 Psychiatric Psychiatric exam: Present normal affect and normal mood Skin Skin exam: Present warm and dry Medical Decision Making Medical Records Medical records reviewed: Yes I reviewed the patient's medical records. Screening: Per USPSTF and CDC recommendations, given the prevalence of disease in our region, it is our hospital?s policy to screen for HIV and viral Hepatitis for all patients aged 18 and over and those with ongoing risk factors. [place] Inquiry Pt receiving controlled substance: No Vital Signs: 09/18/25 18:09 09/18/25 18:15 09/18/25 18:15 Temperature 98.4 F Temperature Source Oral Pulse Rate 97 H 87 Pulse Rate [Right Radial] 94 H Respiratory Rate 18 20 Blood Pressure 147/106 H Blood Pressure [Right Arm] 147/106 H Blood Pressure Mean [Right Arm] 119 Blood Pressure Source [Right Arm] Automatic Cuff Blood Pressure Position [Right Arm] Sitting 02 Sat by Pulse Oximetry 100 100 Oxygen Delivery Method Room Air Room Air 09/18/25 18:30 09/18/25 22:25 Temperature 98.8 F Temperature Source Oral Pulse Rate 86 74 Pulse Rate [Right Radial] Respiratory Rate 11 L 18 Blood Pressure 132/78 Blood Pressure [Right Arm] Blood Pressure Mean [Right Arm] Blood Pressure Source [Right Arm] Blood Pressure Position [Right Arm] 02 Sat by Pulse Oximetry 100 Oxygen Delivery Method Room Air Room Air Lab Data Lab results reviewed: Yes I reviewed the patient's lab results. Lab Results 09/18/25 18:13: WBC 10.2, RBC 4.80, Hgb 14.4, Hct 42.3, MCV 88.1, MCH 30.0, MCHC 34.0, RDW 12.5, Plt Count 419, MPV 9.5, Neut % (Auto) 61.7, Lymph % (Auto) 30.3, [place] % (Auto) 6.0, Eos % (Auto) 1.3, Baso % (Auto) 0.4, Neut # (Auto) 6.3, Lymph # (Auto) 3.1, [place] # (Auto) 0.6, Eos # (Auto) 0.1, Baso # (Auto) 0.0, D-Dimer 0.57 H, Sodium 133 L, Potassium 3.8, Chloride 102, Carbon Dioxide 22, Anion Gap 12.8, BUN 11, Creatinine 0.80, Estimated Creat Clear 117, Estimated GFR 81, Est GFR ( Amer) 98, Glucose 107 H, Calcium 9.1, Total Bilirubin 0.6, AST 72 H, ALT 27, Alkaline Phosphatase 72, Troponin I < 0.01, Total Protein 7.8, Albumin 4.7, Globulin 3.1, Albumin/Globulin Ratio 1.5, Lipase 193, Serum HCG, Qual Negative 09/18/25 21:23: Troponin I < 0.01 09/18/25 18:13 09/18/25 18:13 Orders (Tests/Meds): ED MEDICATIONS Discontinued Medications Generic Name Dose Route Start Last Admin Trade Name Freq PRN Reason Stop Dose Admin Acetaminophen 1,000 mg 09/18/25 20:41 09/18/25 20:47 Acetaminophen 500mg Tab PO 09/18/25 20:42 1,000 mg ONCE ONE Administration Belladonna Alkaloids 60 ml 09/18/25 20:04 09/18/25 20:18 Belladonna Alkaloids 60 Ml Ml PO 09/18/25 20:05 60 ml ONCE ONE Administration Sodium Chloride 1,000 mls @ 999 mls/hr 09/18/25 18:19 09/18/25 21:50 Sod Chlor 0.9% 1000ml Bag IV 09/18/25 19:19 Infused .Q1H1M ONE Infusion Iopamidol 75 ml 09/18/25 19:00 09/18/25 19:04 Iopamidol-370 (76%);100ml Bottle IV 09/18/25 19:01 75 ml ONCE ONE Administration Ketorolac Tromethamine 30 mg 09/18/25 20:41 09/18/25 20:47 Ketorolac 30mg/Ml Vial IV 09/18/25 20:42 30 mg ONCE ONE Administration Morphine Sulfate 4 mg 09/18/25 18:18 09/18/25 18:25 Morphine 4mg/Ml Syringe IV 09/18/25 18:19 4 mg ONCE ONE Administration Ondansetron HCl 4 mg 09/18/25 18:18 09/18/25 18:25 Ondansetron 4mg/2ml Vial IV 09/18/25 18:19 4 mg ONCE ONE Administration ORDERS Category Date Time Status CT abdomen pelvis w con Stat Cat Scan 09/18/25 18:18 Completed CXR --portable [XR chest portable] Stat Exams 09/18/25 18:21 Completed POCUS Point of Care (ER Only) Stat Exams 09/18/25 18:19 Completed CBC w/Auto Diff [Complete Blood Count Auto Diff] Stat Lab 09/18/25 18:13 Completed CMP [Comprehensive Metabolic Panel] Stat Lab 09/18/25 18:13 Completed D-Dimer Stat Lab 09/18/25 18:13 Completed HCG Qualitative, Serum Stat Lab 09/18/25 18:13 Completed Lipase Stat Lab 09/18/25 18:13 Completed Trop I [Troponin I] Stat Lab 09/18/25 18:13 Completed Troponin I Q3H Lab 09/18/25 21:23 Completed Medical Decision Narrative: Patient is a 35-year-old female who presented to the emergency department with epigastric abdominal pain and tenderness that started 30 to 45 minutes after eating Thanksgiving dinner tonight. On arrival, patient was hemodynamically stable with unremarkable vital signs. Differential includes but not limited to: Pancreatitis, cholecystitis, cholelithiasis, ACS/CO, pneumothorax, pleural effusion, gastritis, amongst others. Patient's labs were reviewed and interpreted by myself: CBC showed no leukocytosis, hemoglobin was stable. CMP was unremarkable. D-dimer mildly elevated at 0.57. CMP was unremarkable. Initial troponin less than 0.01, second troponin less than 0.01. EKG showed normal sinus rhythm without acute ST or T wave changes concerning for ischemia. Bedside ultrasound was performed as well as CT abdomen pelvis. Patient's bedside ultrasound did not show any gallstones or thickened gallbladder wall. Low concern for cholelithiasis or cholecystitis at this time. Patient CT scan of the abdomen did show a fluid-filled gallbladder fossa with some asymmetric gallbladder wall thickening. [place] to be not likely cholecystitis per radiology. Patient was given morphine Zofran GI cocktail Toradol and Tylenol for her symptoms. Patient symptoms completely resolved here in the emergency department. Although patient had a mildly elevated D-dimer, patient was PERC negative therefore low concern for PE. At this time, patient had a negative workup. Patient was sent with a referral to general surgery if she continued to have abdominal pain after eating as she may have some underlying gallbladder disease. Patient already has a prescription for Protonix at home which I recommended that she continue taking. Patient was otherwise given return precautions and patient was discharged home in stable condition. Critical Care Critical Care Time Critical Care Time: No
[2025-09-18 18:15] VITALS: BP 147/106; PULSE 87; PULSE 94; RESP 20; TEMP 36.9; O2SAT 100; BMI 29.2
--- NOTE | 2025-09-18 18:18 | CT_ITS ---
PROCEDURE INFORMATION: Exam: CT Abdomen And Pelvis With Contrast Exam date and time: 09/18/2025 6:58 PM Age: 35 years old Clinical indication: Abdominal pain; Epigastric; Additional info: Abdominal tenderness TECHNIQUE: Imaging protocol: Computed tomography of the abdomen and pelvis with contrast. Radiation optimization: All CT scans at this facility use at least one of these dose optimization techniques: automated exposure control; mA and/or kV adjustment per patient size (includes targeted exams where dose is matched to clinical indication); or iterative reconstruction. Contrast material: ISOVUE; Contrast volume: 75 ml; Contrast route: IV; COMPARISON: CR XR CHEST PORTABLE 09/18/2025 6:36 PM FINDINGS: Lungs: Clear lung bases. Liver: There is periportal edema. Gallbladder and biliary ducts: Fluid is noted in the gallbladder fossa with asymmetric gallbladder wall thickening. Pancreas: Normal. No ductal dilation. Spleen: Normal. No splenomegaly. Adrenal glands: Normal. No mass. Kidneys and ureters: Normal. No hydronephrosis. Stomach and bowel: Unremarkable. No obstruction. No mucosal thickening. Appendix: Normal appendix. Intraperitoneal space: Unremarkable. No free air. No significant fluid collection. Vasculature: Unremarkable. No abdominal aortic aneurysm. Lymph nodes: Unremarkable. No enlarged lymph nodes. Urinary bladder: Unremarkable as visualized. Reproductive: Intrauterine device appears in satisfactory position. Bones/joints: Unremarkable. No acute fracture. Soft tissues: Unremarkable. IMPRESSION: 1. There is periportal edema. This is most commonly seen with IV fluid resuscitation but recommend correlation with liver function tests. 2. Fluid is noted in the gallbladder fossa with asymmetric gallbladder wall thickening. This is more likely secondary to periportal edema or hepatitis versus much less likely cholecystitis. Recommend liver function tests.
--- NOTE | 2025-09-18 18:21 | XR_ITS ---
PROCEDURE INFORMATION: Exam: XR Chest Exam date and time: 09/18/2025 6:36 PM Age: 35 years old Clinical indication: Pain; Chest pressure; Additional info: Chest pain and pressure TECHNIQUE: Imaging protocol: Radiologic exam of the chest. Views: 1 view. COMPARISON: No relevant prior studies available. FINDINGS: Lungs: Unremarkable. No consolidation. Pleural spaces: Unremarkable. No pleural effusion. No pneumothorax. Heart/Mediastinum: Unremarkable. No cardiomegaly. Bones/joints: Unremarkable. IMPRESSION: No acute findings.
[2025-09-18] MEDS: 0.9 % SODIUM CHLORIDE 1000ML 1,000 ML 999 ML IV (18:24)
[2025-09-18 18:25] LABS: Hematocrit 42.3 % (37.0-47.0); Hemoglobin 14.4 g/dL (12.2-16.2); Immature Granulocytes % 0.3 %; Mean Corpuscular HGB Conc 34.0 g/dL (31.8-35.4); Mean Corpuscular Hemoglobin 30.0 pg (27.0-31.2); Mean Corpuscular Volume 88.1 fl (81-99); Nucleated Red Blood Cells % 0 %; Platelet Count 419 K/mm3 (142-424); Red Blood Count 4.80 M/mm3 (4.20-5.40); Red Cell Distribution Width-SD 40.3 fL; White Blood Count 10.2 K/mm3 (4.8-10.8)
[2025-09-18] MEDS: ONDANSETRON 4MG/2ML VIAL 4 MG IV (18:25)
[2025-09-18] MEDS: MORPHINE 4MG/ML SYRINGE 4 MG IV (18:25)
[2025-09-18 18:30] VITALS: PULSE 86; RESP 11; O2SAT 100
[2025-09-18 18:30] LABS: Alanine Aminotransferase 27 U/L (12-78); Albumin Level 4.7 g/dl (3.5-5.0); Albumin/Globulin Ratio 1.5 (1.1-1.8); Alkaline Phosphatase 72 U/L (38-126); Anion Gap 12.8 mEq/L (5-15); Aspartate Amino Transferase 72 U/L (14-36); Bilirubin,Total 0.6 mg/dl (0.2-1.3); Blood Urea Nitrogen 11 mg/dl (7-17); Calcium 9.1 mg/dl (8.4-10.2); Carbon Dioxide 22 mmol/L (22.0-30.0); Chloride 102 mmol/L (98-107); Creatinine Clearance Estimated 117 mL/min (50-200); Creatinine,Serum 0.80 mg/dl (0.52-1.04); Estimated Glomerular Filt Rate 81 ml/min (>60); GFR (African American) 98 ML/MIN (>60); Globulin 3.1 g/dL (1.3-3.2); Glucose 107 mg/dl (74-100); HCG Qualitative, Serum Negative (Negative); Lipase 193 U/L (23-300); Potassium 3.8 mmoL/L (3.5-5.1); Sodium 133 mmol/L (136-145); Total Protein,Serum 7.8 g/dl (6.3-8.2)
[2025-09-18 18:35] LABS: D-Dimer 0.57 ug/mL (0.0-0.5)
[2025-09-18 18:43] LABS: Troponin I < 0.01 ng/ml (0.00-0.034)
--- OUTSIDE RECORDS SUMMARY | 2025-09-18 18:45 | XMS_ITS | Data Portability ---
Author Organization [facility] Address [address] [place] [address] Assessment Encounter Date Assessment Date Assessment LastModified [...] posted in patient waiting rooms and bathrooms. [email or web address] Not available 08/21/2024 15:22:43 Plan of Treatment Reminders Order Date Submit Date Provider Last Modified By Organization Details Last Modified Time Details Appointments None recorded. Lab urinalysis , dipstick 2024 025 [facility], [address] [place] [address], [place], [address], 5 08:51:18 CBC w/ auto diff 2024 025 [facility], [address], Yeyo [address], [place], [address], 5 08:12:43 amylase + lipase, serum 2024 025 [facility], [address], [place] [address], [place], [address], 5 08:12:44 CMP, serum or plasma 2024 025 [facility], [address], [place] [address], [place], [address], 5 08:12:44 urinalysis , dipstick 2024 025 [facility], [address] [facility], [place], [address], 5 13:24:29 culture, urine 2024 025 [facility], [address], [place] [address], [place], [address], 5 02:06:24 vaginal pathogens panel, TYLER+probe, vaginal fluid 2023 024 [facility], [address], [place], [place], [address], 4 22:07:28 cytology report, thin prep, smear or scraping, cervical or vaginal 2023 024 [facility], [address], [place], [place], [address], 4 16:15:20 CBC w/ auto diff 2023 024 [facility], [address], [place], [place], [address], 4 07:07:49 CMP, serum or plasma 2023 024 [facility], [address], [address] [address], [place], [address], 4 07:07:50 lipid panel, serum 2023 024 [facility], [address], [address] [address], [place], [address], 4 07:07:50 HbA1c (hemoglobi n A1c), blood 2023 024 [facility], [address], [place] F, [place], [address], 4 07:07:51 TSH + free T4, serum 2023 024 [facility], [address], [place] [address], [place], [address], 4 07:07:49 HbA1c (hemoglobi n A1c), blood 2023 024 [facility] (Lab), [address], [place], [address], 4 08:49:58 CMP, serum or plasma 2023 024 [facility] ([facility]), [address], [place], [address], 4 08:49:58 CBC w/ auto diff 2023 024 [facility] ([facility]), [address], [place], [address], 4 08:49:58 lipid panel, serum 2023 024 [facility] ([facility]), [address], [place], [address], 4 08:49:59 TSH + free T4, serum 2023 024 [facility] ([facility]), [address], [place], [address], 4 08:49:59 Referral gastroente rologist referral - needs [facility] employee 2024 025 SILVINA Hines MD, [address] [place] [address] [address], [place], [address], 5 09:31:36 Procedures None recorded. Surgeries None recorded. Imaging None recorded. Medication Orders ondansetro n 4 mg disintegra ting tablet 2024 025 [facility], [address] [place] [address] [place], [id number], 5 05:02:08 pantoprazo le 40 mg tablet,del ayed release 2024 025 [facility], [address] [place] [address] [place], [id number], 5 14:32:35 cephalexin 500 mg capsule 2024 025 [facility], [address] [place] [address], [id number], 5 08:27:42 Wellbutrin SR 100 mg tablet, 12 hr sustained- release 2024 025 [facility], [address] [place] [address], [id number], 5 12:04:07 lisinopril 10 mg tablet 2023 024 [facility], [address] [place] [address] [address] [place], [id number], 4 14:15:12 metformin ER 500 mg tablet,ext ended release 24 hr 2023 024 [facility], [address] [place] [address] [address] [place], [id number], 4 16:11:23 bupropion HCl 75 mg tablet 2023 024 [facility], [address] [place] [address] [address] [place] [place], [id number], 08:29:35 Patient TargetsNo targets recorded. Patient Instructions Encounter Date Encounter Id Patient Instructions Last Modified By Organization Details Last Modified Time 08/21/2024 [id number] body mass index: care instructions [email or web address] Not available 08/21/2024 15:24:28 learning about healthy weight [email or web address] Not available 08/21/2024 15:24:28 Encourage Self Breast Exam Encourage Healthy eating/regular physical activity Doing well with contraceptive method and desires to continue Schedule mammogram-plans @ [facility] Encourage MV See HPI Encourage routine care with PCP [email or web address] Not available 08/21/2024 21:58:18 We will call abnormal test results in 7-10 days. Patient is advised that normal test results will be retrievable through [facility] and that they will be notified of the availability of normal results from [employer] by phone call, text or email. Discussed what causes pH imbalance and ways to help this-showers instead of tub baths; mild soaps; avoid douching; unscented pads/tampons/liner s; full-crotch cotton undergarments; mild detergents; partner should use mild soaps. 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 abdominal pain needs [facility] employee Referring Physician: Jacqueline Mccall, Family Medicine, Encounter Date: 09/02/2025 Results Created Date Observation Date Name Description Value Unit Range Abnormal Flag Note LastModifiedBy Organization Detail LastModifiedTime 06/03/2006/04/2024 TSH+F REE T4 TSH 4.190 uIU/m L 0.450- 4.500 normal Not Available [facility] ([facility]) [address] [facility], [place], [address], 06/04/2024 07:07:49 06/03/2006/04/2024 TSH+F REE T4 T4,free(dire ct) 1.13 NG/dL 0.82-1 .77 normal Not Available [facility] ([facility]) [address] [place], [address], 06/04/2024 07:07:49 06/03/20 24 06/04/2024 CBC WITH DIFFE RENTI AL/PL ATELE T WBC 9.3 x10e3 /uL 3.4-10 .8 normal Not Available [facility] ([facility]) [address] [place], [address], 06/04/2024 07:07:49 06/03/2006/04/2024 CBC WITH DIFFE RENTI AL/PL ATELE T RBC 5.03 x10e6 /uL 3.77-5 .28 normal Not Available [facility] ([facility]) [address] [place], [address], 06/04/2024 07:07:49 06/03/20 24 06/04/2024 CBC WITH DIFFE RENTI AL/PL ATELE T hemoglobin 14.6 g/dL 11.1-1 5.9 normal Not Available [facility] ([facility]) [address] [place], [address], 06/04/2024 07:07:49 06/03/2006/04/2024 CBC WITH DIFFE RENTI AL/PL ATELE T hematocrit 45.4 % 34.0-4 6.6 normal Not Available [facility] ([facility]) [address] [place], [address], 06/04/2024 07:07:49 06/03/2006/04/2024 CBC WITH DIFFE RENTI AL/PL ATELE T MCV 90 fL 79-97 normal Not Available [facility] ([facility]) [address] [place], [address], 06/04/2024 07:07:49 06/03/20 24 06/04/2024 CBC WITH DIFFE RENTI AL/PL ATELE T MCH 29.0 pg 26.6-3 3.0 normal Not Available [facility] ([facility]) [address] [facility], [place], [address], 06/04/2024 07:07:49 06/03/20 24 06/04/2024 CBC WITH DIFFE RENTI AL/PL ATELE T MCHC 32.2 g/dL 31.5-3 5.7 normal Not Available [facility] ([facility]) [address] [facility], [place], [address], 06/04/2024 07:07:49 06/03/20 24 06/04/2024 CBC WITH DIFFE RENTI AL/PL ATELE T RDW 13.0 % 11.7-1 5.4 Not Available [facility] ([facility]) [address] [facility], [place], [address], 06/04/2024 07:07:49 06/03/20 24 06/04/2024 CBC WITH DIFFE RENTI AL/PL ATELE T platelets 384 x10e3 /uL 150-45 0 normal Not Available [facility] ([facility]) [address] [facility], [place], [address], 06/04/2024 07:07:49 06/03/20 24 06/04/2024 CBC WITH DIFFE RENTI AL/PL ATELE T neutrophils 69 % not estab. normal Not Available [facility] ([facility]) [address] [facility], [place], [address], 06/04/2024 07:07:49 06/03/20 24 06/04/2024 CBC WITH DIFFE RENTI AL/PL ATELE T lymphs 24 % not estab. normal Not Available [facility] ([facility]) [address] [place], [address], 06/04/2024 07:07:49 06/03/20 24 06/04/2024 CBC WITH DIFFE RENTI AL/PL ATELE T monocytes 6 % not estab. normal Not Available [facility] ([facility]) [address] [facility], [place], [address], 06/04/2024 07:07:49 06/03/20 24 06/04/2024 CBC WITH DIFFE RENTI AL/PL ATELE T eos 1 % not estab. normal Not Available [facility] ([facility]) [address] [facility], [place], [address], 06/04/2024 07:07:49 06/03/2006/04/2024 CBC WITH DIFFE RENTI AL/PL ATELE T basos 0 % not estab. normal Not Available [facility] ([facility]) [address] [facility], [place], [address], 06/04/2024 07:07:49 06/03/20 24 06/04/2024 CBC WITH DIFFE RENTI AL/PL ATELE T immature cells CYTOGENETICIST Not Available [facility] ([facility]) [address] [place], [address], 06/04/2024 07:07:49 06/03/20 24 06/04/2024 CBC WITH DIFFE RENTI AL/PL ATELE T neutrophils (absolute) 6.3 x10e3 /uL 1.4-7. 0 normal Not Available [facility] ([facility]) [address] [place], [address], 06/04/2024 07:07:49 06/03/20 24 06/04/2024 CBC WITH DIFFE RENTI AL/PL ATELE T lymphs (absolute) 2.3 x10e3 /uL 0.7-3. 1 normal Not Available [facility] ([facility]) [address] [place], [address], 06/04/2024 07:07:49 06/03/20 24 06/04/2024 CBC WITH DIFFE RENTI AL/PL ATELE T monocytes(ab solute) 0.6 x10e3 /uL 0.1-0. 9 normal Not Available [facility] ([facility]) [address] [facility], [place], [address], 06/04/2024 07:07:49 06/03/20 24 06/04/2024 CBC WITH DIFFE RENTI AL/PL ATELE T eos (absolute) 0.1 x10e3 /uL 0.0-0. 4 normal Not Available [facility] ([facility]) [address] [facility], [place], [address], 06/04/2024 07:07:49 06/03/20 24 06/04/2024 CBC WITH DIFFE RENTI AL/PL ATELE T baso (absolute) 0.0 x10e3 /uL 0.0-0. 2 normal Not Available [facility] ([facility]) [address] [facility], [place], [address], 06/04/2024 07:07:49 06/03/20 24 06/04/2024 CBC WITH DIFFE RENTI AL/PL ATELE T immature granulocytes 0 % not estab. Not Available [facility] ([facility]) [address] [place], [address], 06/04/2024 07:07:49 06/03/20 24 06/04/2024 CBC WITH DIFFE RENTI AL/PL ATELE T immature grans (abs) 0.0 x10e3 /uL 0.0-0. 1 Not Available [facility] ([facility]) [address] [place], [address], 06/04/2024 07:07:49 06/03/20 24 06/04/2024 CBC WITH DIFFE RENTI AL/PL ATELE T NRBC CYTOGENETICIST Not Available [facility] ([facility]) [address] [place], [address], 06/04/2024 07:07:49 06/03/20 24 06/04/2024 CBC WITH DIFFE GISELA AL/PL LINDSEY T hematology comments: CYTOGENETICIST Not Available [facility] ([facility]) [address] [facility], [place], [address], 06/04/2024 07:07:49 06/03/20 24 06/04/2024 COMP. METAB OLIC PANEL (14) glucose 104 mg/dL 70-99 above high normal Not Available [facility] ([facility]) [address] [facility], [place], [address], 06/04/2024 07:07:50 06/03/20 24 06/04/2024 COMP. METAB OLIC PANEL (14) BUN 11 mg/dL 6-20 normal Not Available [facility] ([facility]) [address] [facility], [place], [address], 06/04/2024 07:07:50 06/03/20 24 06/04/2024 COMP. METAB OLIC PANEL (14) creatinine 0.89 mg/dL 0.57-1 .00 normal Not Available [facility] ([facility]) [address] [facility], [place], [address], 06/04/2024 07:07:50 06/03/20 24 06/04/2024 COMP. METAB OLIC PANEL (14) eGFR 86 mL/mi n/1.7 3 >59 normal Not Available [facility] ([facility]) [address] [facility], [place], [address], 06/04/2024 07:07:50 06/03/20 24 06/04/2024 COMP. METAB OLIC PANEL (14) BUN/creatini ne ratio 12 9-23 normal Not Available [facility] ([facility]) [address] [facility], [place], [address], 06/04/2024 07:07:50 06/03/20 24 06/04/2024 COMP. METAB OLIC PANEL (14) sodium 138 mmol/ L 134-14 4 normal Not Available [facility] ([facility]) [address] [place], [address], 06/04/2024 07:07:50 06/03/20 24 06/04/2024 COMP. METAB OLIC PANEL (14) potassium 4.0 mmol/ L 3.5-5. 2 normal Not Available [facility] ([facility]) [address] [place], [address], 06/04/2024 07:07:50 06/03/20 24 06/04/2024 COMP. METAB OLIC PANEL (14) chloride 103 mmol/ L 96-106 normal Not Available [facility] ([facility]) [address] [place], [address], 06/04/2024 07:07:50 06/03/20 24 06/04/2024 COMP. METAB OLIC PANEL (14) carbon dioxide, total 22 mmol/ L 20-29 normal Not Available [facility] ([facility]) [address] [place], [address], 06/04/2024 07:07:50 06/03/20 24 06/04/2024 COMP. METAB OLIC PANEL (14) calcium 9.6 mg/dL 8.7-10 .2 normal Not Available [facility] ([facility]) [address] [place], [address], 06/04/2024 07:07:50 06/03/20 24 06/04/2024 COMP. METAB OLIC PANEL (14) protein, total 7.0 g/dL 6.0-8. 5 normal Not Available [facility] ([facility]) [address] [place], [address], 06/04/2024 07:07:50 06/03/20 24 06/04/2024 COMP. METAB OLIC PANEL (14) albumin 4.3 g/dL 3.9-4. 9 normal Not Available [facility] ([facility]) [address] [facility] [place], [address], 06/04/2024 07:07:50 06/03/20 24 06/04/2024 COMP. METAB OLIC PANEL (14) globulin, total 2.7 g/dL 1.5-4. 5 Not Available [facility] ([facility]) [address] [facility] [place], [address], 06/04/2024 07:07:50 06/03/20 24 06/04/2024 COMP. METAB OLIC PANEL (14) bilirubin, total 0.2 mg/dL 0.0-1. 2 normal Not Available [facility] ([facility]) [address] [facility] [place], [address], 06/04/2024 07:07:50 06/03/20 24 06/04/2024 COMP. METAB OLIC PANEL (14) alkaline phosphatase 122 IU/L 44-121 above high normal Not Available [facility] ([facility]) [address] [facility] [place], [address], 06/04/2024 07:07:50 06/03/20 24 06/04/2024 COMP. METAB OLIC PANEL (14) AST (SGOT) 31 IU/L 0-40 normal Not Available [facility] ([facility]) [address] [facility] [place], [address], 06/04/2024 07:07:50 06/03/20 24 06/04/2024 COMP. METAB OLIC PANEL (14) ALT (SGPT) 12 IU/L 0-32 normal Not Available [facility] ([facility]) [address] [facility] [place], [address], 06/04/2024 07:07:50 06/03/20 24 06/04/2024 LIPID PANEL cholesterol, total 230 mg/dL 100-19 9 above high normal Not Available [facility] ([facility]) [address] [facility] [place], [address], 06/04/2024 07:07:50 06/03/20 24 06/04/2024 LIPID PANEL triglyceride s 170 mg/dL 0-149 above high normal Not Available [facility] ([facility]) [address] [place], [address], 06/04/2024 07:07:50 06/03/20 24 06/04/2024 LIPID PANEL HDL cholesterol 42 mg/dL >39 normal Not Available [facility]) [address] [place], [address], 06/04/2024 07:07:50 06/03/20 24 06/04/2024 LIPID PANEL VLDL cholesterol kezia 31 mg/dL 5-40 Not Available [facility] ([facility]) [address] [place], [address], 06/04/2024 07:07:50 06/03/20 24 06/04/2024 LIPID PANEL LDL chol calc ([facility]) 157 mg/dL 0-99 above high normal Not Available [facility] ([facility]) [address] [place], [address], 06/04/2024 07:07:50 06/03/20 24 06/04/2024 LIPID PANEL LDL calc comment: CYTOGENETICIST Not Available [facility] ([facility]) [address] [place], [address], 06/04/2024 07:07:50 06/03/20 24 06/04/2024 HEMOG LOBIN A1C hemoglobin A1C 5.5 % 4.8-5. 6 normal Predi abete s: 5.7 - 6.4 Diabe marvin: >6.4 Glyce gunner contr ol for adult s with diabe marvin: <7.0 Not Available [facility] ([facility]) [address] [place], [address], 06/04/2024 07:07:51 08/21/20 24 08/22/2024 NUZACH Cohn VAGIN ITIS PLUS (VG+) atopobium vaginae Low - 0 score Not Available [facility] ([facility]) [address] [facility], [place], [address], 08/22/2024 22:07:28 08/21/2008/22/2024 NUSWA B VAGIN ITIS PLUS (VG+) bvab 2 Low - 0 score Not Available [facility] ([facility]) [address] [facility], [place], [address], 08/22/2024 22:07:28 08/21/2008/22/2024 NUA B VAGIN ITIS PLUS (VG+) megasphaera 1 [...] for BV. Addit ional clini kezia data shoul d be evalu ated to estab estefanía a diagn osis. Total score 3-6: Indic ates the prese nce of BV. Not Available [facility] ([facility]) [address] [facility], [place], [address], 08/22/2024 22:07:28 08/21/2008/22/2024 NUA B VAGIN ITIS PLUS (VG+) rishabh albicans, TYLER Negati ve negati ve Not Available [facility] ([facility]) [address] [place], [address], 08/22/2024 22:07:28 08/21/2008/22/2024 NUSWA B VAGIN ITIS PLUS (VG+) rishabh glabrata, TYLER Negati ve negati ve Not Available [facility] ([facility]) [address] [facility], [place], [address], 08/22/2024 22:07:28 08/21/2008/22/2024 NUA B VAGIN ITIS PLUS (VG+) trich vag by TYLER Negati ve negati ve Not Available [facility] ([facility]) [address] [facility], [place], [address], 08/22/2024 22:07:28 08/21/20 24 08/22/2024 NUA B VAGIN ITIS PLUS (VG+) chlamydia trachomatis, TYLER Negati ve negati ve Not Available [facility] ([facility]) [address] [facility], [place], [address], 08/22/2024 22:07:28 08/21/2008/22/2024 NUA B VAGIN ITIS PLUS (VG+) neisseria gonorrhoeae, TYLER Negati ve negati ve Not Available [facility] ([facility]) [address] [facility], [place], [address], 08/22/2024 22:07:28 08/21/2008/22/2024 IGP, APTIM A HPV, RFX 16/18 ,45 HPV aptima Negati ve negati ve This nucle ic acid ampli ficat ion test detec ts fourt een high- risk HPV types (16,1 8,31, 33,35 ,39,4 5,51, 52,56 ,58,5 9,66, 68) witho ut diffe renti ation . Not Available [facility] ([facility]) [address] [facility], [place], [address], 08/28/2024 16:15:20 08/21/2008/28/2024 IGP, APTIM A HPV, RFX 16/18 ,45 diagnosis: Commen t NEGAT MARLIN FOR INTRA EPITH ELIAL LESIO N OR MALIG YUE . SPECI MEN REPRO CESSE D FOR INTER PRETA TION USING GLACI AL ACETI C ACID (GAA) . Not Available [facility] ([facility]) [address] [facility], [place], [address], 08/28/2024 16:15:20 08/21/20 24 08/28/2024 IGP, APTIM A HPV, RFX 16/18 ,45 specimen adequacy: Nick mendoza Satis facto ry for evalu ation . Endoc ervic al and/o r squam ous metap lasti c cells (endo cervi kezia compo nent) are prese nt. Areas of parti ally obscu ring blood are prese nt. Not Available [facility] ([facility]) [address] [place], [address], 08/28/2024 16:15:20 08/21/20 24 08/28/2024 IGP, APTIM A HPV, RFX 16/18 ,45 clinician provided ICD10: Nick mendoza Z12.4 Not Available [facility] ([facility]) [address] [place], [address], 08/28/2024 16:15:20 08/21/20 24 08/28/2024 IGP, APTIM A HPV, RFX 16/18 ,45 performed by: Nick rushing, Cytot monico cobos t (ASCP ) Not Available [facility] ([facility]) [address] [place], [address], 08/28/2024 16:15:20 08/21/20 24 08/28/2024 IGP, APTIM A HPV, RFX 16/18 ,45 . . Not Available [facility] ([facility]) [address] [place], [address], 08/28/2024 16:15:20 08/21/20 24 08/28/2024 IGP, APTIM [...] ts do occur . Not Available [facility] ([facility]) [address] [place], [address], 08/28/2024 16:15:20 08/21/20 24 08/28/2024 IGP, APTIM A HPV, RFX 16/18 ,45 test methodology: Commen t This liqui d based ThinP rep(R ) pap test was roldan martínez with the use of an image guide radha biggs Not Available [facility] ([facility]) [address] [place], [address], 08/28/2024 16:15:20 08/21/20 24 08/28/2024 IGP, APTIM A HPV, RFX 16/18 ,45 HPV genotype reflex Commen t Crite melissa not met, HPV Genot ype not perfo rmed. Not Available [facility] ([facility]) [address] [place], [address], 08/28/2024 16:15:20 08/22/20 25 08/24/2025 URINE CULTU RE, ROUTI NE urine culture, routine Final report Not Available [facility] ([facility]) [address] [place], [address], 08/24/2025 02:06:24 08/22/20 25 08/24/2025 URINE CULTU RE, ROUTI NE result 1 COMMEN T Mixed uroge nital ayan 10,00 0-25, 000 colon y formi ng units per mL Not Available [facility] ([facility]) [address] [place], [address], 08/24/2025 02:06:24 08/22/20 25 08/22/2025 urina lysis , dipst ick Leukocytes Small Not Available [address], [address], 08/22/2025 09:58:44 08/22/2008/22/2025 urina lysis , dipst ick Nitrite negati ve Not Available [address], [address], 08/22/2025 09:58:44 08/22/2008/22/2025 urina lysis , dipst ick Urobilinogen 1 Not Available Giovanni [address], [address], 08/22/2025 09:58:44 08/22/2008/22/2025 urina lysis , dipst ick Protein 100 Not Available [address], [address], 08/22/2025 09:58:44 08/22/2008/22/2025 urina lysis , dipst ick pH 7.0 Not Available [address], [address], 08/22/2025 09:58:44 08/22/2008/22/2025 urina lysis , dipst ick Blood Large Not Available [address], [address], 08/22/2025 09:58:44 08/22/2008/22/2025 urina lysis , dipst ick Specific Raymond 1.025 Not Available [address], [address], 08/22/2025 09:58:44 08/22/2008/22/2025 urina lysis , dipst ick Ketone Negati ve Not Available [address], [address], 08/22/2025 09:58:44 08/22/2008/22/2025 urina lysis , dipst ick Bilirubin Negati ve Not Available [address], [address], 08/22/2025 09:58:44 08/22/2008/22/2025 urina lysis , dipst ick Glucose Negati ve Not Available [address], [address], 08/22/2025 09:58:44 08/22/2008/22/2025 urina lysis , dipst ick Appearance Clear Not Available [address], [address], 08/22/2025 09:58:44 08/22/2008/22/2025 urina lysis , dipst ick Color Dark Yellow Not Available [address], [address], 08/22/2025 09:58:44 09/02/2009/03/2025 CBC WITH DIFFE RENTI AL/PL ATELE T WBC 5.8 x10e3 /uL 3.4-10 .8 normal Not Available [facility] ([facility]) [address] [place], [address], 09/03/2025 08:12:43 09/02/20 25 09/03/2025 CBC WITH DIFFE RENTI AL/PL ATELE T RBC 4.86 x10e6 /uL 3.77-5 .28 normal Not Available [facility] ([facility]) [address] [facility], [place], [address], 09/03/2025 08:12:43 09/02/20 25 09/03/2025 CBC WITH DIFFE RENTI AL/PL ATELE T hemoglobin 14.4 g/dL 11.1-1 5.9 normal Not Available [facility] ([facility]) [address] [place], [address], 09/03/2025 08:12:43 09/02/20 25 09/03/2025 CBC WITH DIFFE RENTI AL/PL ATELE T hematocrit 43.3 % 34.0-4 6.6 normal Not Available [facility] ([facility]) [address] [facility], [place], [address], 09/03/2025 08:12:43 09/02/20 25 09/03/2025 CBC WITH DIFFE RENTI AL/PL ATELE T MCV 89 fL 79-97 normal Not Available [facility] ([facility]) [address] [facility], [place], [address], 09/03/2025 08:12:43 09/02/20 25 09/03/2025 CBC WITH DIFFE RENTI AL/PL ATELE T MCH 29.6 pg 26.6-3 3.0 normal Not Available [facility] ([facility]) [address] [place], [address], 09/03/2025 08:12:43 09/02/20 25 09/03/2025 CBC WITH DIFFE RENTI AL/PL ATELE T MCHC 33.3 g/dL 31.5-3 5.7 normal Not Available [facility] ([facility]) [address] [place], [address], 09/03/2025 08:12:43 09/02/20 25 09/03/2025 CBC WITH DIFFE RENTI AL/PL ATELE T RDW 12.1 % 11.7-1 5.4 Not Available [facility] ([facility]) [address] [place], [address], 09/03/2025 08:12:43 09/02/20 25 09/03/2025 CBC WITH DIFFE RENTI AL/PL ATELE T platelets 339 x10e3 /uL 150-45 0 normal Not Available [facility] ([facility]) [address] [facility], [place], [address], 09/03/2025 08:12:43 09/02/20 25 09/03/2025 CBC WITH DIFFE RENTI AL/PL ATELE T neutrophils 68 % not estab. normal Not Available [facility] ([facility]) [address] [facility], [place], [address], 09/03/2025 08:12:43 09/02/2009/03/2025 CBC WITH DIFFE RENTI AL/PL ATELE T lymphs 21 % not estab. normal Not Available [facility] ([facility]) [address] [facility], [place], [address], 09/03/2025 08:12:43 09/02/20 25 09/03/2025 CBC WITH DIFFE RENTI AL/PL ATELE T monocytes 9 % not estab. normal Not Available [facility] ([facility]) [address] [facility], [place], [place], [id number], 09/03/2025 08:12:43 09/02/2009/03/2025 CBC WITH DIFFE RENTI AL/PL ATELE T eos 1 % not estab. normal Not Available [facility] ([facility]) [address] [facility], [place], [address], 09/03/2025 08:12:43 09/02/20 25 09/03/2025 CBC WITH DIFFE RENTI AL/PL ATELE T basos 0 % not estab. normal Not Available [facility] ([facility]) [address] [facility], [place], [address], 09/03/2025 08:12:43 09/02/20 25 09/03/2025 CBC WITH DIFFE RENTI AL/PL ATELE T immature cells CYTOGENETICIST Not Available [facility] ([facility]) [address] [facility], [place], [address], 09/03/2025 08:12:43 09/02/20 25 09/03/2025 CBC WITH DIFFE RENTI AL/PL ATELE T neutrophils (absolute) 4.0 x10e3 /uL 1.4-7. 0 normal Not Available [facility] ([facility]) [address] [facility], [place], [address], 09/03/2025 08:12:43 09/02/20 25 09/03/2025 CBC WITH DIFFE RENTI AL/PL ATELE T lymphs (absolute) 1.2 x10e3 /uL 0.7-3. 1 normal Not Available [facility] ([facility]) [address] [place], [address], 09/03/2025 08:12:43 09/02/20 25 09/03/2025 CBC WITH DIFFE RENTI AL/PL ATELE T monocytes(ab solute) 0.5 x10e3 /uL 0.1-0. 9 normal Not Available [facility] ([facility]) [address] [facility], [place], [address], 09/03/2025 08:12:43 09/02/20 25 09/03/2025 CBC WITH DIFFE RENTI AL/PL ATELE T eos (absolute) 0.1 x10e3 /uL 0.0-0. 4 normal Not Available [facility] ([facility]) [address] [place], [address], 09/03/2025 08:12:43 09/02/20 25 09/03/2025 CBC WITH DIFFE RENTI AL/PL ATELE T baso (absolute) 0.0 x10e3 /uL 0.0-0. 2 normal Not Available [facility] ([facility]) [address] [place], [address], 09/03/2025 08:12:43 09/02/20 25 09/03/2025 CBC WITH DIFFE RENTI AL/PL ATELE T immature granulocytes 0 % not estab. Not Available [facility] ([facility]) [address] [facility], [place], [address], 09/03/2025 08:12:43 09/02/2009/03/2025 CBC WITH DIFFE RENTI AL/PL ATELE T immature grans (abs) 0.0 x10e3 /uL 0.0-0. 1 Not Available [facility] ([facility]) [address] [facility], [place], [address], 09/03/2025 08:12:43 09/02/20 25 09/03/2025 CBC WITH DIFFE RENTI AL/PL ATELE T NRBC CYTOGENETICIST Not Available [facility] ([facility]) [address] [facility], [place], [address], 09/03/2025 08:12:43 09/02/20 25 09/03/2025 CBC WITH DIFFE RENTI AL/PL ATELE T hematology comments: CYTOGENETICIST Not Available [facility] ([facility]) [address] [facility], [place], [address], 09/03/2025 08:12:43 09/02/20 25 09/03/2025 COMP. METAB OLIC PANEL (14) glucose 77 mg/dL 70-99 normal Not Available [facility] ([facility]) [address] [facility], [place], [address], 09/03/2025 08:12:44 09/02/20 25 09/03/2025 COMP. METAB OLIC PANEL (14) BUN 9 mg/dL 6-20 normal Not Available [facility] ([facility]) [address] [facility] [place], [address], 09/03/2025 08:12:44 09/02/20 25 09/03/2025 COMP. METAB OLIC PANEL (14) creatinine 0.67 mg/dL 0.57-1 .00 normal Not Available [facility] ([facility]) [address] [facility], [place], [address], 09/03/2025 08:12:44 09/02/20 25 09/03/2025 COMP. METAB OLIC PANEL (14) eGFR 115 mL/mi n/1.7 3 >59 normal Not Available [facility] ([facility]) [address] [facility], [place], [address], 09/03/2025 08:12:44 09/02/20 25 09/03/2025 COMP. METAB OLIC PANEL (14) BUN/creatini ne ratio 13 9-23 normal Not Available [facility] ([facility]) [address] [facility], [place], [address], 09/03/2025 08:12:44 09/02/20 25 09/03/2025 COMP. METAB OLIC PANEL (14) sodium 138 mmol/ L 134-14 4 normal Not Available [facility] ([facility]) [address] [facility], [place], [address], 09/03/2025 08:12:44 09/02/20 25 09/03/2025 COMP. METAB OLIC PANEL (14) potassium 4.1 mmol/ L 3.5-5. 2 normal Not Available [facility] ([facility]) [address] [facility], [place], [address], 09/03/2025 08:12:44 09/02/20 25 09/03/2025 COMP. METAB OLIC PANEL (14) chloride 105 mmol/ L 96-106 normal Not Available [facility] ([facility]) [address] [facility], [place], [address], 09/03/2025 08:12:44 09/02/20 25 09/03/2025 COMP. METAB OLIC PANEL (14) carbon dioxide, total 23 mmol/ L 20-29 normal Not Available [facility] ([facility]) [address] [facility], [place], [address], 09/03/2025 08:12:44 09/02/20 25 09/03/2025 COMP. METAB OLIC PANEL (14) calcium 8.8 mg/dL 8.7-10 .2 normal Not Available [facility] ([facility]) [address] [facility] [place], [address], 09/03/2025 08:12:44 09/02/20 25 09/03/2025 COMP. METAB OLIC PANEL (14) protein, total 6.3 g/dL 6.0-8. 5 normal Not Available [facility] ([facility]) [address] [facility] [place], [address], 09/03/2025 08:12:44 09/02/20 25 09/03/2025 COMP. METAB OLIC PANEL (14) albumin 4.1 g/dL 3.9-4. 9 normal Not Available [facility] ([facility]) [address] [facility] [place], [address], 09/03/2025 08:12:44 09/02/20 25 09/03/2025 COMP. METAB OLIC PANEL (14) globulin, total 2.2 g/dL 1.5-4. 5 Not Available [facility] ([facility]) [address] [place], [address], 09/03/2025 08:12:44 09/02/20 25 09/03/2025 COMP. METAB OLIC PANEL (14) bilirubin, total 0.3 mg/dL 0.0-1. 2 normal Not Available [facility] ([facility]) [address] [place], [address], 09/03/2025 08:12:44 09/02/20 25 09/03/2025 COMP. METAB OLIC PANEL (14) alkaline phosphatase 78 IU/L 41-116 normal Not Available [facility] ([facility]) [address] [facility] [place], [address], 09/03/2025 08:12:44 09/02/20 25 09/03/2025 COMP. METAB OLIC PANEL (14) AST (SGOT) 31 IU/L 0-40 normal Not Available [facility] ([facility]) [address] [facility], [place], [address], 09/03/2025 08:12:44 09/02/20 25 09/03/2025 COMP. METAB OLIC PANEL (14) ALT (SGPT) 9 IU/L 0-32 normal Not Available [facility] ([facility]) [address] [facility], [place], [address], 09/03/2025 08:12:44 09/02/20 25 09/03/2025 ELODIA+L IPASE amylase 72 U/L 31-110 normal Not Available [facility] ([facility]) [address] [facility], [place], [address], 09/03/2025 08:12:44 09/02/20 25 09/03/2025 ELODIA+L IPASE lipase 50 U/L 14-72 normal Not Available [facility] ([facility]) [address] [facility], [place], [address], 09/03/2025 08:12:44 09/02/2009/02/2025 urina lysis , dipst ick Leukocytes Negati ve Not Available [address], [address], 09/02/2025 08:47:56 09/02/2009/02/2025 urina lysis , dipst ick Nitrite negati ve Not Available [address], [address], 09/02/2025 08:47:56 09/02/2009/02/2025 urina lysis , dipst ick Urobilinogen .2 Not Available Giovanni [address], [address], 09/02/2025 08:47:56 09/02/2009/02/2025 urina lysis , dipst ick Protein Negati ve Not Available [address], [address], 09/02/2025 08:47:56 09/02/2009/02/2025 urina lysis , dipst ick pH 5.5 Not Available [address], [address], 09/02/2025 08:47:56 09/02/2009/02/2025 urina lysis , dipst ick Blood Negati ve Not Available [address], [address], 09/02/2025 08:47:56 09/02/2009/02/2025 urina lysis , dipst ick Specific Raymond 1.030 Not Available [address], [address], 09/02/2025 08:47:56 09/02/2009/02/2025 urina lysis , dipst ick Ketone Negati ve Not Available [address], [address], 09/02/2025 08:47:56 09/02/2009/02/2025 urina lysis , dipst ick Bilirubin Negati ve Not Available [address], [address], 09/02/2025 08:47:56 09/02/2009/02/2025 urina lysis , dipst ick Glucose Negati ve Not Available [address], [address], 09/02/2025 08:47:56 09/02/2009/02/2025 urina lysis , dipst ick Appearance Slight ly Cloudy Not Available [address], [address], 09/02/2025 08:47:56 09/02/20 25 09/02/2025 urina lysis , dipst ick Color Yellow Not Available [address], [address], 09/02/2025 08:47:56 Result Notes None recorded. Problems Name Problem SNOMED Code Status Onset Date Resolution Date Notes Provider Name and Address Organization Details Recorded Time Anxiety disorder 308734855 Active 2023 Avkrzysztof CAROLINA timmonsN [address], [place], [address], [place] - [facility] 4 10:09:52 Depressive disorder 70454654 Active 2023 Avkrzysztof Mccall [employer] [address], [place], [address], [place] - [facility] 4 10:10:01 Prediabetes 760288263 Active 2023 Avkrzysztof shanelle, [employer] [address], [place], [address], [place] - [facility] 4 10:10:10 Vaginal odor 794296741 Active 2023 Shara Sheehan APRN [address], [place], [address], [place] - [facility] 4 15:24:04 Body mass index 40+ - severely obese 423112950 Active 2023 Shara Sheehan APRN [address], [place], [address], [place] - [facility] 4 15:24:36 Hypertensive disorder 90045595 Active 2023 Shara Sheehan [employer] [address], [place], [address], [place] - [facility] 4 15:24:54 Problem Notes None recorded. Procedures Surgical History Date Name Laterality Status Provider Name and Address Organization Details Recorded Time 08/21/20 24 Date of Last Pap Smear completed Shara CAROLINA SheehanN [address], [place], [address], [facility] - [facility] 08/28/2024 16:33:13 08/28/20 17 Nexplanon Removal completed Shara Aguila [employer] [address], [place], [address], [facility] - [facility] 08/28/2017 15:23:17 07/31/20 17 IUD Insertion (Mirena) completed Sharamakenna Sheehan [employer] [address], [place], [address], [facility] - [facility] 07/31/2017 13:44:57 07/31/20 17 IUD Insertion completed Jasmin Drake [place] - [facility] 08/21/2024 14:21:05 12/22/19 16 Contraceptive Implant Insertion completed Dilcia Patton APRN [address], [place], [address], [facility] - [facility] 04/18/2017 15:51:51 12/09/19 14 Caesarean Section completed Shara Kumargabbie [employer] [address], [place], [address], [facility] - [facility] 08/21/2024 14:33:00 12/09/19 14 delivery completed Rayna Conner [place] - [facility] 04/20/2017 10:39:07 Imaging Results None [...] ation: Acute Bacteria l Sinusiti s - (08.4619 00);Prin rylan: 05/04/20 10 Not Available Not Available Not Available Mirena 21 mcg/24 hr (up to 8 years) 52 mg intrauter ine device Take 1 device by intraute rine route. 2016 active Not Available Not Available Not Darrian walls azithromy wendi 250 mg tablet TAKE 2 [...] 14 Not Available Not Available Not Available penicilli n V potassium 500 mg tablet TAKE ONE TABLET BY MOUTH TWICE DAILY FOR 10 DAYS -- FINISH ALL MEDICINE -- 08/21 completed Not Available Not Available Not Available Flonase [...] Available Not Available Not Available bupropion HCl SR 100 mg tablet,12 hr sustained -release TAKE 1 TABLET 2 TIMES EACH DAY active Not Available Not Available No t Available prednison e 10 mg tablets in a dose pack 07/17 completed Not Available Not Available Not Available meloxicam 7.5 mg tablet 07/17 completed Not Available Not Available Not Available lancets use as directed 01/22 completed lancets; Recorded Status: Recorded on: 09/23/20 13 3:40PM;D iscontin ued Status: Disconti nued on: 01/23/20 14 10:08AM; User: [email or web address]; Est. Completi on: 01/22/20 14;Indic ation: - [...] Disconti nued on: 12/31/19 16 4:37PM;U ser: jenna Est. Completi on: 11/17/19 16;Pharm acyVerif ied: 08/19/20 15 4:27PM Not Available Not Available Not Available dicyclomi ne 20 mg tablet 07/17 completed Not Available Not Available Not Available cephalexi n 500 mg capsule TAKE 1 CAPSULE 2 TIMES EACH DAY FOR 7 DAYS 09/02 completed Not Available Not Available Not Available pantopraz ole 40 mg tablet,de layed release TAKE ONE TABLET BY MOUTH EVERY DAY active Not Available Not Available No t Available calcipotr iene 0.005 % topical cream 07/17 completed Not Available Not Available Not Available lisinopri l 10 mg tablet TAKE ONE TABLET BY MOUTH EVERY DAY active Not Available Not Available No t Available promethaz ine 25 mg tablet 07/17 completed Not Available Not Available Not Available bupropion HCl 75 mg tablet TAKE ONE TABLET BY MOUTH TWICE DAILY FOR ANXIETY 09/02 completed Not Available Not Available Not Available alcohol swabs use prior to testing 01/22 completed alcohol swabs Topical Pads, Medicate d;Record ed Status: Recorded on: 09/23/20 13 3:40PM;D iscontin ued Status: Disconti nued on: 01/23/20 14 10:08AM; User: [employer]; Est. Completi on: 01/22/20 14;Print ed: 09/23/20 [...] ondansetr on 4 mg disintegr ating tablet Place 1 tablet every 8 hours by translin gual route as needed for 3 days, for nausea/v omiting. 09/12 completed Not Available Not Available Not Available cefdinir 300 mg capsule 07/17 completed Not Available Not Available Not Available metformin ER 500 mg tablet,ex tended release 24 hr TAKE ONE TABLET BY MOUTH EVERY DAY active Not Available Not Available No t Available amoxicill in 875 mg-potass ium clavulana te 125 mg tablet take 1 tablet by oral route every 12 hours for 10 days 07/17 completed Not Available Not Available Not Available Tessalon Perle 100 mg capsule take 1-2 capsules [...] Disconti nued on: 01/23/20 14 10:08AM; User: [email or web address]; Est. Completi on: 01/22/20 14;Indic ation: - [...] Disconti nued on: 04/21/20 14 11:26AM; User: [email or web address];In dication : Pregnanc y - (18.V222 00) Not Available Not Available Not Available Glucomete r-M use as directed 01/22 completed Glucomet er;Recor ded Status: Recorded on: 09/23/20 13 3:40PM;D iscontin ued Status: Disconti nued on: 01/23/20 14 10:08AM; User: [email or web address]; Est. Completi on: 12/23/19 14;Indic ation: - [...] completed Not Available Not Available Not Available semagluti de (weight loss) 1.7 mg/0.75 mL subcutane ous pen injector Inject 1.75 mg every week by subcutan eous route. active Not Available Not Available No t Available Ozempic 0.25 mg or 0.5 mg (2 mg/3 mL) subcutane ous pen injector 02/05 completed Not Available Not Available Not Available Vitals Date Recorded Body height Body mass index (BMI) Body weight Heart rate Oxygen saturation Respiratory rate Pain severity - 0-10 verbal numeric rating [Score] - Reported Systolic And Diastolic Provider Name and Address Organization Details Last Updated DateTime 4 165.1 cm 43.6 kg/m2 748579. 2 g 88 /min 98 % 18 /min 0 128/80 mm[Hg] Sandra Gillis [place] - [facility] 4 08:31:42 Date Recorded Body height Body mass index (BMI) Body weight Body temperature Heart rate Respiratory rate Oxygen saturation Systolic And Diastolic Provider Name and Address Organization Details Last Updated DateTime 4 165.1 cm 42.6 kg/m2 624663. 65 g 97.8 [degF] 90 /min 18 /min 98 % 134/82 mm[Hg] Amber Stears [place] - [facility] 4 13:25:00 Date Recorded Body height Body mass index (BMI) Body weight Pain severity - 0-10 verbal numeric rating [Score] - Reported Systolic And Diastolic Provider Name and Address Organization Details Last Updated DateTime 08/21/2024 165.1 cm 40.1 kg/m2 691443.7 6 g 0 130/86 mm[Hg] Jasmin Drake [place] - [facility] 4 14:19:12 Date Recorded Body weight Oxygen saturation Respiratory rate Pain severity - 0-10 verbal numeric rating [Score] - Reported Heart rate Body temperature Systolic And Diastolic Provider Name and Address Organization Details Last Updated DateTime 5 95709.4 8 g 98 % 18 /min 0 88 /min 97.8 [degF] 118/78 mm[Hg] Sandra Gillis [place] - [facility] 5 10:00:43 Date Recorded Body height Body mass index (BMI) Body weight Oxygen saturation Heart rate Respiratory rate Systolic And Diastolic Provider Name and Address Organization Details Last Updated DateTime 5 165.1 cm 28.8 kg/m2 71202.4 8 g 98 % 84 /min 18 /min 122/76 mm[Hg] Amber Ponces [place] - [facility] 5 08:29:08 Social History Question Answer Notes LastModified by Organizat ion Details LastModified Time Tobacco Smoking Status Former Smoker vape Mackenzie beaulieu, [place] - [facility] 07/17/2017 14:35:17 Do [...] Or The Highest Degree You Have Received? [id number] [email or web address] Information not available 08/21/2024 Have There Been Any Changes To Your Family Or Social Situation? No Information no t available 11/21/2023 What Is The Fluoride Status Of Your Home? Unknown Information not available 11/21/2023 When Did You Quit Smoking? 6-10yearssi [email or web address] Information not available 11/21/2023 Live Alone Or With Others? With Others Information not available 07/17/2017 Do You Have A Medical Power Of Tiler'S Assistant? No Information not available 11/21/2023 What Was The Date Of Your Most Recent Tobacco Screening? 08/22/2025 [email or web address] Information not available 08/22/2025 How Many Children Do You Have? 1 Information not available 07/17/2017 What Is Your Current Pack Years? 10-19packye ars Information not available 11/21/2023 Performs Monthly Self-breast Exam? Yes Information no t available 07/17/2017 Do You Use Protection Against STDs? No [email or web address] Information not available 08/21/2024 What Is Your Relationship Status? Information not available 07/17/2017 Do You Use Your Seat Belt Or Car Seat Routinely? Yes [email or web address] Information not available 08/21/2024 Seat Belts Used Routinely Yes Information not available 07/17/2017 Are You Sexually Active? Yes Information not available 07/17/2017 Do You Have Smoke And Carbon Monoxide Detectors In Your Home? Yes Information not available 11/21/2023 At What Age Did You Start Smoking Tobacco? 13 Information not available 11/21/2023 Are You Passively Exposed To Smoke? No [email or web address] Information no t available 08/21/2024 How Much [...] 11/21/2023 Are you able to care for yourself independently? Yes Information not available 11/21/2023 Do you have difficulty dressing, bathing, grooming, or toileting? No Information not available 11/21/2023 Do you [...] is your level of alcohol consumption? None [email or web address] Information not available 08/21/2024 Are you able to walk independently without assistance or assistive devices? YESWOREST Information not available 07/17/2017 Do you have difficulty doing errands alone? No Information not available 11/21/2023 What is your occupation? [employer] Information not available 11/21/2023 Mental Status Question Answer Note LastModified by Organizat ion Details LastModified Time Do you feel stressed (tense, restless, nervous, or anxious, or unable to sleep at night)? [id number] [email or web address] Information not available 08/21/2024 Do you have difficulty concentrating, remembering or making decisions? No Information no t available 11/21/2023 Family History Relationship Description Onset Age of this Age Resolved Age Notes LastModified by Organization Details LastModified Time Father Family history of diabetes mellitus [email or web address] Not available 2023 14:32:34 Father Family history of Hypertension [email or web address] Not available 14:32:34 Father Family history of Myocardial infarction Not available 08/21 14:32:34 Father Hypertensive disorder [email or web address] Not available 2023 14:32:34 Paternal Grandfather Family history of diabetes mellitus [email or web address] Not available 2023 14:32:34 Mother Arthritis [email or web address] Not availab le 08/21/2024 14:32:34 Medical History Condition Response Depression Y Obesity Y Hypercholesterolemia Y Diabetes Y Hypertension Y Gynecological History Statement/Question Response Abnormal Pap Y Flow Light Date of LMP 08/04/2025 Post Menopausal Bleeding N STIs/STDs N HPV [...] e and Address Organization Details Recorded Time MMR 9 completed Not Available [facility] 09/02/2025 08:14:33 Hep B, adolescent or pediatric 2 completed Not Available [facility] 09/02/2025 08:14:33 Hep B, adolescent or pediatric 2 completed Not Available [facility] 09/02/2025 08:14:33 Td (adult), 2 Lf tetanus toxoid, preservative free, adsorbed 3 completed Not Available [facility] 09/02/2025 08:14:33 Hep B, adolescent or pediatric 3 completed Not Available [facility] 09/02/2025 08:14:33 Tdap 5 completed Not Available [facility] 09/02/2025 08:14:33 COVID-19, mRNA, LNP-S, PF, 50 mcg/0.5 mL dose 2 completed Sandra Gillis null, [place] - [facility] 08/19/2022 13:58:36 influenza, unspecified formulation 4 completed Not Available [facility] 12/04/2023 09:17:39 Influenza, split virus, quadrivalent, PF 2 completed Sandra Elis null, [place] - [facility] 08/19/2022 10:33:32 COVID-19 vaccine, vector-nr, rS-Ad26, PF, 0.5 mL 1 completed Sandra Gillis null, [place] - [facility] 08/19/2022 10:33:32 Past Encounters Encounter ID Performer Location Encounter Start Date Encounter Closed Date Diagnosis/Indication Diagnosis SNOMED-CT Code Diagnosis ICD10 Code Diagnosis IMO Codes Diagnosis Note [id number] [facility] [address] [place] [address] 02/21/2005 00:00:00 [id number] [facility] [address] [place] [address] 05/30/2005 00:00:00 [id number] [facility] [address] [place] [address] 06/13/2005 00:00:00 [id number] [facility] [address] [place] [address] 07/19/2005 00:00:00 [id number] [facility] [address] [place] [address] 08/24/2005 00:00:00 [id number] [facility] [address] [place] [address] 08/31/2005 00:00:00 [id number] [facility] [address] [place] [address] 12/06/2007 00:00:00 [id number] [facility] [address] [place] [address] 11/05/2009 00:00:00 [id number] [facility] [address] [place] [address] 05/04/2010 00:00:00 [id number] [facility] [address] [place] [address] 09/25/2012 00:00:00 [id number] [facility] [address] [place] [address] 02/11/2013 00:00:00 [id number] [facility] [address] [place] [address] 02/21/2013 00:00:00 [id number] [facility] [address] [place] [address] 03/04/2013 00:00:00 [id number] [facility] [address] [place] [address] 04/24/2013 00:00:00 [id number] [facility] [address] [place] [address] 06/19/2013 00:00:00 [id number] [facility] [address] [place] [address] 12/17/2013 00:00:00 [id number] [facility] [address] [place] [address] 01/22/2014 00:00:00 [id number] [facility] [address] [place] [address] 04/21/2014 00:00:00 [id number] [facility] [address] [place] [address] 04/21/2014 00:00:00 [id number] [facility] [address] [place] [address] 10/29/2014 00:00:00 [id number] [facility] [address] [place] [address] 12/09/2015 00:00:00 [id number] [facility] [address] [place] [address] 12/31/2015 00:00:00 [id number] [facility] [address] [place] [address] 02/01/2016 00:00:00 [id number] KARON Carroll [employer] [address] [place] [address] [place] [address] 07/17/2017 14:23:51 07/17/2017 15:33:37 Irregular periods 96019901 N92.6 Contracept ion care management 745307012 Z30.[address]; plans removal d/t irregular bleeding and plan Mirena insertion [id number] KARON Carroll KNURLING MACHINE TENDER [address] [place] [address] NUSRAT Soto [address] 07/31/2017 13:07:21 07/31/2017 13:46:50 Insertion of intrauterine contraceptive device 36981924 Z30.266 [id number] KARON Carroll [employer]URLING MACHINE [employer]END[employer] [address] [place] [address] NUSRAT Soto [address] 08/28/2017 12:44:17 08/28/2017 15:03:38 IUD check 363019454 Z30.[address] Removal of subcutaneous contraceptive done [id number] 64352 Z30.46 Nexplanon removed [id number] Jacqueline Mccall [address] [address] 08/19/2022 10:01:37 08/19/2022 11:41:55 History and physical examination, sports participation 565528236 Z02.5 Administra tion of SARS-CoV-2 antigen vaccine 511873713 Z23 [id number] Jacqueline Mccall [address] [address] 11/21/2023 07:59:17 11/21/2023 10:05:53 Anxiety 30306373 F41.9 Patient identified triggers for anxiety and impact of anxious thinking on functionin g. Discussed strategies to regulate symptoms and need for compliance with treatment. discussed med in detail. any issues or thoughts go to ed coco. discussed her calling for therapy appointmen t. Hypertensive disorder 38 892551 I10 labskeep log bring to next appointmen t Unintentio nal weight gain 7168418486 62887 R63.5 [id number] Jacqueline Stefany [address] [address] 12/04/2023 09:17:24 12/04/2023 10:08:28 Depressive disorder 54786110 F32.A Prediabetes 783708844 R7 3.03 discussed diet and medication in detail with pt Anxiety 00961846 F41.9 Patient identified triggers for anxiety and impact of anxious thinking on functionin g. Discussed strategies to regulate symptoms and need for compliance with treatment. discussed med in detail. any issues or thoughts go to ed coco. discussed her calling for therapy appointmen t. [id number] Jacqueline Padillagus [address] [address] 02/06/2024 08:14:41 02/06/2024 09:12:00 Prediabetes 855150511 R73.03 discussed diet and medication in detail with pt Anxiety 25084993 F41.9 Patient identified triggers for anxiety and impact of anxious thinking on functionin g. Discussed strategies to regulate symptoms and need for compliance with treatment. discussed med in detail. any issues or thoughts go to ed coco. discussed her calling for therapy appointmen t. [id number] Jacqueline Rolandshanelle [address] [address] 06/03/2024 13:08:39 06/03/2024 14:18:53 Prediabetes 971868136 R73.03 discussed diet and medication in detail with pt Anxiety disorder 1389910 06 F41.9 Hypertensive disorder 38 161816 I10 labskeep log bring to next appointmen t [id number] KARON Carroll KNURLING MACHINE TENDER 7 [facility] NUSRAT [place] [address] 08/21/2024 14:08:44 08/21/2024 15:07:00 Counseling 978360187 Z71.82 Exercise counselromeo perez Patient encouraged to exercise 30 minutes 5 days a week. Examinatio n of blood pressure 449407048 Z01.30 Routine gy necologic examination done 2690556651 9101 Z01.419 Depression screening 171 700613 Z13.31 Screening for malignant neoplasm of cervix 802897835 Z12.4 Diet education 22280121 Z71.3 Encourage healthy eating/dec reased fats, sugars, fried foods Screening for malignant neoplasm of breast 381848811 Z12.31 Contracept ion care management 236432328 Z30.[address]; due for removal 07/2025 Vaginal odor 141865436 N 89.8 Body mass index 40+ - severely obese 837233404 Z68.41 Morbid obesity 537841923 E66.01 Hypertensive disorder 38 478389 I10 Depressive disorder 3544 0477 F32.A Vaccination declined 342 2983468 Z28.21 Seasonal flu vaccine offered and declined [id number] Jacqueline Mccall [address] [address] 08/22/2025 09:33:56 08/22/2025 10:22:39 Acute urinary tract infection 112940745 N39.0 935141 increase fluidscran lundy juicewipe front to backvoid after intercours jose luis not hold urineantib iotics as orderedcot ton underwearr eturn if symptoms worsen or do not improve Depressive disorder 6213 5807 F32.A med discussed in detailif issues return or go to ed [id number] Jacquelien Mccall [address] [address] 09/02/2025 08:12:00 09/02/2025 09:05:53 Overweight in adulthood with body mass index of 25 or more but less than 30 824259102 E66.3 Z68.28 8691357214 28.8 Acute abdominal pain 116 284509 R10.9 83151 Gastroesop hageal reflux disease without esophagitis 513873369 K21.9 905227 follow up with gi Nausea 634932760 R11.0 39920 Health Concerns Section Related Observation LastModified by Organization Detai ls LastModified Time None Recorded Concern Status LastModified by Organization Details LastModified Time None Recorded Advance Directives Directive N: Payers Insurance Date Sequence Insurance Name Policy Number Policy Walsh Covered Member ID Walsh Member ID Guarantor Name 09/02/2025 1 [employer] [facility] (MEDICAID O) Zoey A Paul [id number] Zoey A Paul 08/22/2025 1 [id number] Zoey A Paul [id number] Zoey A Paul 09/01/2025 [place] [facility] WRAP BILLING (MEDICAID) [id number] Zoey A Paul [id number] Zoey A Paul 08/06/2024 1 [place] [id number] Zoey A Paul [id number] Zoey A Paul 08/06/2024 2 [place] [id number] Zoey A Paul [id number] Zoey A [place] 09/02/2025 1 [place] [id number] Zoey A Paul [id number] Zoey A Paul Notes Date Note Type Note Provider Name and Address Organization Details Recorded Time 02/06/2024 text/html ROS as noted in the HPI 33 yr old female presents for med refills and lab work. pt states she is doing well no issues at this time. Jacqueline Mccall APRN [address], [place], [address], [place] [facility] 02/06/2024 08:59:59 06/03/2024 text/html ROS as noted in the HPI 34 year old female who presents to the office today with concerns ofhypertension- states BP at home and at work have been 150's over 90's. also has concerns of headache, bad indigestion, states hands and feet have been cold when bp is elevated, states symptoms ok at this time.past 3 days have felt really bad Jacqueline Mccall APRN [address], [place], [address], [place] [facility] 06/03/2024 13:56:39 08/21/2024 text/html Annual - MOBRepo rted by PatientHistoryFor history, patient reportslast annual exam: 2016,no gynecologic complaints, andno change in interval history.ContraceptionF or current contraception, patient reportssatisfied with current contraceptionandintrau terine device (iud).Preventative measuresFor preventive measures, patient reportsall immunization are current,encourage self breast examination,encourage regular exercise,encourage no tobacco use, andfollowed with q3 year pap smear and high risk hpv typing.Zoey rto for AWE. She has Mirena and [...] 07/2017 Shara Sheehan APRN [address], [place], [address], [place] - [facility] 08/21/2024 21:59:11 08/22/2025 text/html Anxiety/Depressi onRepo rted by PatientHPIFor severity, patient reportsdenies suicidal ideations,able to maintain relationships, anddoes not interfere with activities of daily living. For context, patient reportsno major life stressors. For associated symptoms, patient reportsdenies homicidal ideations,no significant weight gain,no significant weight loss,no visual/auditory hallucinations,no delusions,no shortness of breath,mood good,no anxiety,no crying spells,no panic,no isolation,sleeping well,appetite good,energy good,no apathy, andmaintaining functionality. 35 yr old female presents for burning with urination. She also wanted to discuss increasing wellbutrin dose. Jacqueline Mccall APRN [address], [place], [address], [place] - [facility] 08/22/2025 10:22:28 09/02/2025 text/html ROS as noted in the HPI 35 year old female who presents to the office today with concerns of abdominal pain, random, shooting,black bowel movements yesterdayleft back pain --finished up meds for uti on or nausea yesterdayhx of ulcer Jacqueline Mccall APRN [address], [place], [address], [place] - [facility] 09/02/2025 09:02:56 OBGyn Episode Ob Episode Information Episode Created Date Number of Fetuses Patient Bloodtype Patient rh Status Prepregnancy Weight lbs Domestic Partner Domestic Partner Phone Father Name Chinese Instructor Status 04/20/20 17 1 CLOSED Fetus Data [...] Domestic Partner Domestic Partner Phone Father Name Chinese Instructor Status 04/20/20 17 1 CLOSED Fetus Data First Name Last Name Admitted to NICU Weight (g) Sex Living Outcome Pediatric Complications Fetus ID Race Codes Race Delivery Type 3259.96 5704 F Full Term 5625 Valeriy Calculation Initial Valeriy Date Initial Exam [...]
--- OUTSIDE RECORDS SUMMARY | 2025-09-18 18:45 | XMS_ITS | Continuity of Care Document ---
[facility] Address [address] [place] [address] Assessment No assessment recorded. Plan of Treatment Reminders Order Date Submit Date Provider Last Modified By Organization Details Last Modified Time Details Appointments None recorded. Lab urinalysis, dipstick 2024 [facility], [address] [place] [address], [id number], 13:24:29 culture, urine 2024 [place] [facility], [address] , [facility], [place], [address], 02:06:24 Referral None recorded. Procedures None recorded. Surgeries None recorded. Imaging None recorded. Medication Orders cephalexin 500 mg capsule 2024 [facility], [address] [place] [address], [id number], 08:27:42 Wellbutrin SR 100 mg tablet, 12 hr sustained-r elease 2024 025 [facility], [address] [place] [address], [id number], 12:04:07 Patient TargetsNo targets recorded. Patient InstructionsNo instructions recorded. Reason for Referral None Reported. Results Created Date Observation Date Name Description Value Unit Range Abnormal Flag Note LastModifiedBy Organization Detail LastModifiedTime 08/22/2008/24/2025 URINE CULTU RE, ROUTI NE urine culture, routine Final report Not Available [facility] ([facility]) [address] [facility], [place], [address], 08/24/2025 02:06:24 08/22/2008/24/2025 URINE CULTU RE, ROUTI NE result 1 COMMEN T Mixed uroge nital ayan 10,00 0-25, 000 colon y formi ng units per mL Not Available [facility] ([facility]) [address] [facility], [place], [address], 08/24/2025 02:06:24 08/22/2008/22/2025 urina lysis , dipst ick Leukocytes Small Not Available [address], [address], 08/22/2025 09:58:44 08/22/2008/22/2025 urina lysis , dipst ick Nitrite negati ve Not Available [address], [address], 08/22/2025 09:58:44 08/22/2008/22/2025 urina lysis , dipst ick Urobilinogen 1 Not Available Giovanni [address], [address], 08/22/2025 09:58:44 08/22/2008/22/2025 urina lysis , dipst ick Protein 100 Not Available [address], [address], 08/22/2025 09:58:44 08/22/2008/22/2025 urina lysis , dipst ick pH 7.0 Not Available [address], [address], 08/22/2025 09:58:44 08/22/2008/22/2025 urina lysis , dipst ick Blood Large Not Available [address], [address], 08/22/2025 09:58:44 08/22/2008/22/2025 urina lysis , dipst ick Specific [place] 1.025 Not Available [address], [address], 08/22/2025 09:58:44 08/22/2008/22/2025 urina lysis , dipst ick Ketone Negati ve Not Available [address], [address], 08/22/2025 09:58:44 08/22/2008/22/2025 urina lysis , dipst ick Bilirubin Negati ve Not Available [address], [address], 08/22/2025 09:58:44 08/22/2008/22/2025 urina lysis , dipst ick Glucose Negati ve Not Available [address], [address], 08/22/2025 09:58:44 08/22/2008/22/2025 urina lysis , dipst ick Appearance Clear Not Available [address], [address], 08/22/2025 09:58:44 08/22/2008/22/2025 urina lysis , dipst ick Color Dark Yellow Not Available [address], [address], 08/22/2025 09:58:44 Result Notes None recorded. Problems Name Problem SNOMED Code Status Onset Date Resolution Date Notes Provider Name and Address Organization Details Recorded Time Anxiety disorder 935145237 Active 2023 Jacqueline Mccall APRN [address], [place], [address], [place] - [facility] 4 10:09:52 Depressive disorder 14419902 Active 2023 Jacqueline Mccall APRN [address], [place], [address], [place] - [facility] 4 10:10:01 Prediabetes 148917337 Active 2023 Jacqueline Mccall APRN [address], [place], [address], [place] - [facility] 4 10:10:10 Vaginal odor 488819778 Active 2023 Shara Sheehan APRN [address], [place], [address], [place] - [facility] 4 15:24:04 Body mass index 40+ - severely obese 582294563 Active 2023 Shara Sheehan APRN [address], [place], [address], [place] - [facility] 4 15:24:36 Hypertensive disorder 27248981 Active 2023 Shara Sheehan APRN [address], [place], [address], [place] - [facility] 4 15:24:54 Problem Notes None recorded. Procedures Surgical History Date Name Laterality Status Provider Name and Address Organization Details Recorded Time 08/21/20 24 Date of Last Pap Smear completed Shara KumarckCAROLINA hamN [address], [place], [address], [place] [facility] 08/28/2024 16:33:13 08/28/20 17 Nexplanon Removal completed Shara Kumarckjitendra POLITICAL WORKER [address], [place], [address], [place] - [facility] 08/28/2017 15:23:17 07/31/20 17 IUD Insertion (Mirena) completed Shara Sheehan, POLITICAL WORKER [address], [place], [address], [facility] - [facility] 07/31/2017 13:44:57 07/31/20 17 IUD Insertion completed Jasmin Drake [place] - [facility] 08/21/2024 14:21:05 12/22/19 16 Contraceptive Implant Insertion completed Dilciayamileth Patton, POLITICAL WORKER [address], [place], [address], [facility] - [facility] 04/18/2017 15:51:51 12/09/19 14 Caesarean Section completed Shara Sheehan, POLITICAL WORKER [address], [place], [address], [facility] - [facility] 08/21/2024 14:33:00 12/09/19 14 delivery completed Rayna Conner [place] - [facility] 04/20/2017 10:39:07 Imaging Results None [...] Acute Bacteria l Sinusiti s - (08.4619 );Prin rylan: 05/04/20 10 Not Available Not [...] nued on: 01/23/20 14 10:08AM; User: osmany Barrerat ion: Gestatio nal Diabetes ,antepar bella - (641.12) ;Printed : 11/06/19 14 Not Available Not [...] Disconti nued on: 01/23/20 14 10:08AM; User: justus Est. Completi on: 01/22/20 14;Print ed: 09/23/20 [...] Disconti nued on: 01/23/20 14 10:08AM; User: [facility]; Est. Completi on: 01/22/20 14;Indic ation: - [...] stacym Not Available Not Available Not Available June11/11 (21) 1 mg-20 mcg tablet 07/17 completed [...] Disconti nued on: 01/23/20 14 10:08AM; User: justinec; Est. Completi on: 12/23/19 14;Indic ation: - [...] Available Not Available Vitals Date Recorded Body weight Oxygen saturation Respiratory rate Pain severity - 0-10 verbal numeric rating [Score] - Reported Heart rate Body temperature Systolic And Diastolic Provider Name and Address Organization Details Last Updated DateTime 5 36[address].4 8 g 98 % 18 /min 0 88 /min 97.8 [degF] 118/78 mm[Hg] Sandra Gillis [place] - [facility] 5 10:00:43 Social History Question Answer Notes LastModified by [...] Or The Highest Degree You Have Received? [id number] [email or web address] Information not available 08/21/2024 Have There Been [...] Do You Have A Medical Power Of Yarn Mercerizer Operator? No Information not available 11/21/2023 What Was The Date Of Your Most Recent Tobacco Screening? 08/22/2025 [email or web address] Information not available 08/22/2025 How Many Children Do You Have? 1 Information not available 07/17/2017 What Is Your Current Pack Years? 10-19packye ars Information not available 11/21/2023 Performs Monthly Self-breast Exam? Yes Information no t available 07/17/2017 Do You Use Protection Against STDs? No Information not available 08/21/2024 What Is Your Relationship Status? Information not available 07/17/2017 Do You Use Your Seat Belt Or Car Seat Routinely? Yes [email or web address] Information not available 08/21/2024 Seat Belts Used Routinely Yes Information not available 07/17/2017 Are You Sexually Active? Yes Information not available 07/17/2017 Do You Have Smoke And Carbon Monoxide Detectors In Your Home? Yes Information not available 11/21/2023 At What Age Did You Start Smoking Tobacco? 13 Information not available 11/21/2023 Are You Passively Exposed To Smoke? No [email or web address] Information no t available 08/21/2024 How Much [...] is your level of alcohol consumption? None [email or web address] Information not available 08/21/2024 Are you able to walk independently without assistance or assistive devices? YESWOREST Information not available 07/17/2017 Do you have difficulty doing errands alone? No Information not available 11/21/2023 What is your occupation? [employer] Information not available 11/21/2023 Mental Status Question Answer Note LastModified by Organizat ion Details LastModified Time Do you feel stressed (tense, restless, nervous, or anxious, or unable to sleep at night)? [id number] [email or web address] Information not available 08/21/2024 Do you have difficulty concentrating, remembering or making decisions? No Information no t available 11/21/2023 Family History Relationship Description Onset Age of this Age Resolved Age Notes LastModified by Organization Details LastModified Time Father Family history of diabetes mellitus [email or web address] Not available 2023 14:32:34 Father Family history of Hypertension [email or web address] Not available 14:32:34 Father Family history of Myocardial infarction [email or web address] Not available 08/21 14:32:34 Father Hypertensive disorder [email or web address] Not available 2023 14:32:34 Paternal Grandfather Family history of diabetes mellitus [email or web address] Not available 2023 14:32:34 Mother Arthritis [email or web address] Not availab le 08/21/2024 14:32:34 Medical History [...] preservative free, adsorbed 3 completed Not Available [facility] 09/02/2025 08:14:33 Hep B, adolescent or pediatric 3 completed Not Available [facility] 09/02/2025 08:14:33 Tdap 5 completed Not Available [facility] 09/02/2025 08:14:33 COVID-19, mRNA, LNP-S, PF, 50 mcg/0.5 mL dose 2 completed Sandra Gillis null, [place] - [facility] 08/19/2022 13:58:36 influenza, unspecified formulation 4 completed Not Available [facility] 12/04/2023 09:17:39 Influenza, split virus, quadrivalent, PF 2 completed Sandra Gillis null, [place] - [facility] 08/19/2022 10:33:32 COVID-19 vaccine, vector-nr, rS-Ad26, PF, 0.5 mL 1 completed Sandra Gillis null, [place] - [facility] 08/19/2022 10:33:32 Past Encounters Encounter ID Performer Location Encounter Start Date Encounter Closed Date Diagnosis/Indication Diagnosis SNOMED-CT Code Diagnosis ICD10 Code Diagnosis IMO Codes Diagnosis Note [id number] Jacqueline Mccall APRN [address] [address] 08/22/2025 09:33:56 08/22/2025 10:22:39 Acute urinary tract infection 348024736 N39.0 153134 increase fluidscran lundy juicewipe front to backvoid after intercours jose luis not hold urineantib iotics as orderedcot ton underwearr eturn if symptoms worsen or do not improve Depressive disorder 7397 5189 F32.A med discussed in detailif issues return or go to ed Health Concerns Section Related Observation LastModified by Organization Detai ls LastModified Time None Recorded Concern Status LastModified by Organization Details LastModified Time None Recorded Payers Encounter Date Sequence Insurance Name Policy Number Policy Walsh Covered Member ID Walsh Member ID Guarantor Name 08/22/2025 1 [employer] [facility] (MEDICAID HMO) Zoey Black Paul [id number] Zoey Miller 08/22/2025 1 [facility] (O) [id number] Zoey A [place] [id number] Zoey Miller Notes Date Note Type Note Provider Name and Address Organization Details Recorded Time 08/22/2025 text/html Anxiety/Depressi onRe ported by PatientHPIFor severity, patient reportsdenies suicidal ideations,able [...] wanted to discuss increasing wellbutrin dose. Jacqueline Mccall, POLITICAL WORKER [address], [place], [address], [place] [facility] 08/22/2025 10:22:28 OBGyn Episode No OBEpisode recorded.
--- OUTSIDE RECORDS SUMMARY | 2025-09-18 18:45 | XMS_ITS | Continuity of Care Document ---
[facility] Organization [facility] Address [address] [place] [address] Assessment No assessment recorded. Plan of Treatment Reminders Order Date Submit Date Provider Last Modified By Organization Details Last Modified Time Details Appointments None recorded. Lab urinalysis , dipstick 2024 025 [facility], [address] [place] [address], [id number], 5 08:51:18 CBC w/ auto diff 2024 025 JAI Quiñones, [address], [place], [address], 5 08:12:43 amylase + lipase, serum 2024 025 JAI Quiñones, [address], [place], [address], 5 08:12:44 CMP, serum or plasma 2024 025 [facility], [address], [place], [address], 5 08:12:44 Referral gastroente rologist referral - needs [facility] employee 2024 025 SILVINA Hines MD, [address], [place], [address], 09:31:36 Procedures None recorded. Surgeries None recorded. Imaging None recorded. Medication Orders ondansetro n 4 mg disintegra ting tablet 2024 [facility], [address] [place] [address] [address], [place], [id number], 05:02:08 pantoprazo le 40 mg tablet,del ayed release 2024 [facility], [address] [place] [address] [address], [place], [id number], 14:32:35 Patient TargetsNo targets recorded. 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 Referral for Acute abdominal pain needs [facility] employee Referring Physician: Jacqueline Mccall, Family Medicine, Encounter Date: 09/02/2025 Results Created Date Observation Date Name Description Value Unit Range Abnormal Flag Note LastModifiedBy Organization Detail LastModifiedTime 08/22/2008/24/2025 URINE CULTU REKHRIS urine culture, routine Final report Not Available [facility] ([facility]) [address] [place], [address], 08/24/2025 02:06:24 08/22/2008/24/2025 URINE CULTU REKHRIS NE result 1 COMMEN T Mixed uroge nital ayan 10,00 0-25, 000 colon y formi ng units per mL Not Available [facility] ([facility]) [address], [place], [address], 08/24/2025 02:06:24 08/22/2008/22/2025 urina lysis , dipst ick Leukocytes Small Not Available [address], [address], 08/22/2025 09:58:44 08/22/2008/22/2025 urina lysis , dipst ick Nitrite negati ve Not Available [address], [address], 08/22/2025 09:58:44 08/22/2008/22/2025 urina lysis , dipst ick Urobilinogen 1 Not Available Giovanni [address], [address], 08/22/2025 09:58:44 08/22/2008/22/2025 urina lysis , dipst ick Protein 100 Not Available [address], [address], 08/22/2025 09:58:44 08/22/2008/22/2025 urina lysis , dipst ick pH 7.0 Not Available [address], [address], 08/22/2025 09:58:44 08/22/2008/22/2025 urina lysis , dipst ick Blood Large Not Available [address], [address], 08/22/2025 09:58:44 08/22/2008/22/2025 urina lysis , dipst ick Specific Blair 1.025 Not Available [address], [address], 08/22/2025 09:58:44 08/22/2008/22/2025 urina lysis , dipst ick Ketone Negati ve Not Available [address], [address], 08/22/2025 09:58:44 08/22/2008/22/2025 urina lysis , dipst ick Bilirubin Negati ve Not Available [address], [address], 08/22/2025 09:58:44 08/22/2008/22/2025 urina lysis , dipst ick Glucose Negati ve Not Available [address], [address], 08/22/2025 09:58:44 08/22/2008/22/2025 urina lysis , dipst ick Appearance Clear Not Available [address], [address], 08/22/2025 09:58:44 08/22/2008/22/2025 urina lysis , dipst ick Color Dark Yellow Not Available [address], [address], 08/22/2025 09:58:44 09/02/2009/03/2025 CBC WITH DIFFE RENTI AL/PL ATELE T WBC 5.8 x10e3 /uL 3.4-10 .8 normal Not Available [facility] ([facility]) [address], [place], [address], 09/03/2025 08:12:43 09/02/2009/03/2025 CBC WITH DIFFE RENTI AL/PL ATELE T RBC 4.86 x10e6 /uL 3.77-5 .28 normal Not Available [facility] ([facility]) [address], [place], [address], 09/03/2025 08:12:43 09/02/20 25 09/03/2025 CBC WITH DIFFE RENTI AL/PL ATELE T hemoglobin 14.4 g/dL 11.1-1 5.9 normal Not Available [facility] ([facility]) [address] [place], [address], 09/03/2025 08:12:43 09/02/20 25 09/03/2025 CBC WITH DIFFE RENTI AL/PL ATELE T hematocrit 43.3 % 34.0-4 6.6 normal Not Available [facility] ([facility]) [address] [place], [address], 09/03/2025 08:12:43 09/02/20 25 09/03/2025 CBC WITH DIFFE RENTI AL/PL ATELE T MCV 89 fL 79-97 normal Not Available [facility] ([facility]) [address] [place], [address], 09/03/2025 08:12:43 09/02/20 25 09/03/2025 CBC WITH DIFFE RENTI AL/PL ATELE T MCH 29.6 pg 26.6-3 3.0 normal Not Available [facility] ([facility]) [address] [place], [address], 09/03/2025 08:12:43 09/02/2009/03/2025 CBC WITH DIFFE RENTI AL/PL ATELE T MCHC 33.3 g/dL 31.5-3 5.7 normal Not Available [facility] ([facility]) [address] [place], [address], 09/03/2025 08:12:43 09/02/20 25 09/03/2025 CBC WITH DIFFE RENTI AL/PL ATELE T RDW 12.1 % 11.7-1 5.4 Not Available [facility] ([facility]) [address] [place], [address], 09/03/2025 08:12:43 09/02/20 25 09/03/2025 CBC WITH DIFFE RENTI AL/PL ATELE T platelets 339 x10e3 /uL 150-45 0 normal Not Available [facility] ([facility]) [address], [place], [address], 09/03/2025 08:12:43 09/02/20 25 09/03/2025 CBC WITH DIFFE RENTI AL/PL ATELE T neutrophils 68 % not estab. normal Not Available [facility] ([facility]) [address], [place], [address], 09/03/2025 08:12:43 09/02/2009/03/2025 CBC WITH DIFFE RENTI AL/PL ATELE T lymphs 21 % not estab. normal Not Available [facility] ([facility]) [address], [place], [address], 09/03/2025 08:12:43 09/02/20 25 09/03/2025 CBC WITH DIFFE RENTI AL/PL ATELE T monocytes 9 % not estab. normal Not Available [facility] ([facility]) [address], [place], [address], 09/03/2025 08:12:43 09/02/20 25 09/03/2025 CBC WITH DIFFE RENTI AL/PL ATELE T eos 1 % not estab. normal Not Available [facility] ([facility]) [address], [place], [address], 09/03/2025 08:12:43 09/02/20 25 09/03/2025 CBC WITH DIFFE RENTI AL/PL ATELE T basos 0 % not estab. normal Not Available [facility] ([facility]) [address], [place], [address], 09/03/2025 08:12:43 09/02/20 25 09/03/2025 CBC WITH DIFFE RENTI AL/PL ATELE T immature cells [employer] Not Available [facility] ([facility]) [address] [place], [address], 09/03/2025 08:12:43 09/02/2009/03/2025 CBC WITH DIFFE RENTI AL/PL ATELE T neutrophils (absolute) 4.0 x10e3 /uL 1.4-7. 0 normal Not Available [facility] ([facility]) [address] [place], [address], 09/03/2025 08:12:43 09/02/20 25 09/03/2025 CBC WITH DIFFE RENTI AL/PL ATELE T lymphs (absolute) 1.2 x10e3 /uL 0.7-3. 1 normal Not Available [facility] ([facility]) [address] [place], [address], 09/03/2025 08:12:43 09/02/20 25 09/03/2025 CBC WITH DIFFE RENTI AL/PL ATELE T monocytes(ab solute) 0.5 x10e3 /uL 0.1-0. 9 normal Not Available [facility] ([facility]) [address] [place], [address], 09/03/2025 08:12:43 09/02/20 25 09/03/2025 CBC WITH DIFFE RENTI AL/PL ATELE T eos (absolute) 0.1 x10e3 /uL 0.0-0. 4 normal Not Available [facility] ([facility]) [address] [place], [address], 09/03/2025 08:12:43 09/02/2009/03/2025 CBC WITH DIFFE RENTI AL/PL ATELE T baso (absolute) 0.0 x10e3 /uL 0.0-0. 2 normal Not Available [facility] ([facility]) [address] [place], [address], 09/03/2025 08:12:43 09/02/20 25 09/03/2025 CBC WITH DIFFE RENTI AL/PL ATELE T immature granulocytes 0 % not estab. Not Available [facility] ([facility]) [address], [place], [address], 09/03/2025 08:12:43 09/02/20 25 09/03/2025 CBC WITH DIFFE RENTI AL/PL ATELE T immature grans (abs) 0.0 x10e3 /uL 0.0-0. 1 Not Available [facility] ([facility]) [address], [place], [address], 09/03/2025 08:12:43 09/02/20 25 09/03/2025 CBC WITH DIFFE RENTI AL/PL ATELE T NRBC [employer] Not Available [facility] ([facility]) [address], [place], [address], 09/03/2025 08:12:43 09/02/20 25 09/03/2025 CBC WITH DIFFE RENTI AL/PL ATELE T hematology comments: [employer]ER Not Available [facility] ([facility]) [address], [place], [address], 09/03/2025 08:12:43 09/02/20 25 09/03/2025 COMP. METAB OLIC PANEL (14) glucose 77 mg/dL 70-99 normal Not Available [facility] ([facility]) [address], [place], [address], 09/03/2025 08:12:44 09/02/20 25 09/03/2025 COMP. METAB OLIC PANEL (14) BUN 9 mg/dL 6-20 normal Not Available [facility] ([facility]) [address], [place], [address], 09/03/2025 08:12:44 09/02/20 25 09/03/2025 COMP. METAB OLIC PANEL (14) creatinine 0.67 mg/dL 0.57-1 .00 normal Not Available [facility] ([facility]) [address] [place], [address], 09/03/2025 08:12:44 09/02/20 25 09/03/2025 COMP. METAB OLIC PANEL (14) eGFR 115 mL/mi n/1.7 3 >59 normal Not Available [facility] ([facility]) [address] [place], [address], 09/03/2025 08:12:44 09/02/20 25 09/03/2025 COMP. METAB OLIC PANEL (14) BUN/creatini ne ratio 13 9-23 normal Not Available [facility] ([facility]) [address] [place], [address], 09/03/2025 08:12:44 09/02/20 25 09/03/2025 COMP. METAB OLIC PANEL (14) sodium 138 mmol/ L 134-14 4 normal Not Available [facility] ([facility]) [address] [place], [address], 09/03/2025 08:12:44 09/02/20 25 09/03/2025 COMP. METAB OLIC PANEL (14) potassium 4.1 mmol/ L 3.5-5. 2 normal Not Available [facility] ([facility]) [address] [place], [address], 09/03/2025 08:12:44 09/02/20 25 09/03/2025 COMP. METAB OLIC PANEL (14) chloride 105 mmol/ L 96-106 normal Not Available [facility] ([facility]) [address] [place], [address], 09/03/2025 08:12:44 09/02/20 25 09/03/2025 COMP. METAB OLIC PANEL (14) carbon dioxide, total 23 mmol/ L 20-29 normal Not Available [facility] ([facility]) [address] [place], [address], 09/03/2025 08:12:44 09/02/20 25 09/03/2025 COMP. METAB OLIC PANEL (14) calcium 8.8 mg/dL 8.7-10 .2 normal Not Available [facility] ([facility]) [address] [place], [address], 09/03/2025 08:12:44 09/02/20 25 09/03/2025 COMP. METAB OLIC PANEL (14) protein, total 6.3 g/dL 6.0-8. 5 normal Not Available [facility] ([facility]) [address] [place], [address], 09/03/2025 08:12:44 09/02/20 25 09/03/2025 COMP. METAB OLIC PANEL (14) albumin 4.1 g/dL 3.9-4. 9 normal Not Available [facility] ([facility]) [address] [place], [address], 09/03/2025 08:12:44 09/02/20 25 09/03/2025 COMP. METAB OLIC PANEL (14) globulin, total 2.2 g/dL 1.5-4. 5 Not Available [facility] ([facility]) [address] [place], [address], 09/03/2025 08:12:44 09/02/20 25 09/03/2025 COMP. METAB OLIC PANEL (14) bilirubin, total 0.3 mg/dL 0.0-1. 2 normal Not Available [facility] ([facility]) [address] [place], [address], 09/03/2025 08:12:44 09/02/20 25 09/03/2025 COMP. METAB OLIC PANEL (14) alkaline phosphatase 78 IU/L 41-116 normal Not Available [facility] ([facility]) [address] [place], [address], 09/03/2025 08:12:44 09/02/20 25 09/03/2025 COMP. METAB OLIC PANEL (14) AST (SGOT) 31 IU/L 0-40 normal Not Available [facility] ([facility]) [address], [place], [address], 09/03/2025 08:12:44 09/02/20 25 09/03/2025 COMP. METAB OLIC PANEL (14) ALT (SGPT) 9 IU/L 0-32 normal Not Available [facility] ([facility]) [address] [place], [address], 09/03/2025 08:12:44 09/02/20 25 09/03/2025 ELODIA+L IPASE amylase 72 U/L 31-110 normal Not Available [facility] ([facility]) [address], [place], [address], 09/03/2025 08:12:44 09/02/20 25 09/03/2025 ELODIA+L IPASE lipase 50 U/L 14-72 normal Not Available [facility] ([facility]) [address] [place], [address], 09/03/2025 08:12:44 09/02/20 25 09/02/2025 urina lysis , dipst ick Leukocytes Negati ve Not Available [address], [address], 09/02/2025 08:47:56 09/02/20 25 09/02/2025 urina lysis , dipst ick Nitrite negati ve Not Available [address], [address], 09/02/2025 08:47:56 09/02/20 25 09/02/2025 urina lysis , dipst ick Urobilinogen .2 Not Available [facility] [address], [address], 09/02/2025 08:47:56 09/02/2009/02/2025 urina lysis , dipst ick Protein Negati ve Not Available [address], [address], 09/02/2025 08:47:56 09/02/2009/02/2025 urina lysis , dipst ick pH 5.5 Not Available [address], [address], 09/02/2025 08:47:56 09/02/2009/02/2025 urina lysis , dipst ick Blood Negati ve Not Available [address], [address], 09/02/2025 08:47:56 09/02/2009/02/2025 urina lysis , dipst ick Specific Blair 1.030 Not Available [address], [address], 09/02/2025 08:47:56 09/02/2009/02/2025 urina lysis , dipst ick Ketone Negati ve Not Available [address], [address], 09/02/2025 08:47:56 09/02/2009/02/2025 urina lysis , dipst ick Bilirubin Negati ve Not Available [address], [address], 09/02/2025 08:47:56 09/02/2009/02/2025 urina lysis , dipst ick Glucose Negati ve Not Available [address], [place], [address], 09/02/2025 08:47:56 09/02/2009/02/2025 urina lysis , dipst ick Appearance Slight ly Cloudy Not Available [address], [address], 09/02/2025 08:47:56 09/02/2009/02/2025 urina lysis , dipst ick Color Yellow Not Available [address], [address], 09/02/2025 08:47:56 Result Notes None recorded. Problems Name Problem SNOMED Code Status Onset Date Resolution Date Notes Provider Name and Address Organization Details Recorded Time Anxiety disorder 554100191 Active 2023 Jacqueline Mccall APRN [address], [place], [address], [place] - [facility] 4 10:09:52 Depressive disorder 86171660 Active 2023 Jacqueline Mccall LARGE ANIMAL HUSBANDRY TECHNICIAN [address], [place], [address], [place] [facility] 4 10:10:01 Prediabetes 884922122 Active 2023 Jacqueline Mccall APRN [address], [place], [address], [place] - [facility] 4 10:10:10 Vaginal odor 881353697 Active 2023 Shara Sheehan LARGE ANIMAL HUSBANDRY TECHNICIAN [address], [place], [address], [place] - [facility] 4 15:24:04 Body mass index 40+ - severely obese 164026139 Active 2023 Shara Sheehan APRN [address], [place], [address], [place] [facility] 4 15:24:36 Hypertensive disorder 89597836 Active 2023 Shara Aguila, LARGE ANIMAL HUSBANDRY TECHNICIAN [address], [place], [address], [place] [facility] 15:24:54 Problem Notes None recorded. Procedures Surgical History Date Name Laterality Status Provider Name and Address Organization Details Recorded Time 08/21/20 24 Date of Last Pap Smear completed Shara Sheehan, LARGE ANIMAL HUSBANDRY TECHNICIAN [address], [place], [address], [place] [facility] 08/28/2024 16:33:13 08/28/20 17 Nexplanon Removal completed Shara Sheehan, LARGE ANIMAL HUSBANDRY TECHNICIAN [address], [place], [address], [place] [facility] 08/28/2017 15:23:17 07/31/20 17 IUD Insertion (Mirena) completed Shara Sheehan, LARGE ANIMAL HUSBANDRY TECHNICIAN [address], [place], [address], [place] [facility] 07/31/2017 13:44:57 07/31/20 17 IUD Insertion completed Jasmin Noelle [place] - [facility] 08/21/2024 14:21:05 12/22/19 16 Contraceptive Implant Insertion completed Dilcia Abdi, LARGE ANIMAL HUSBANDRY TECHNICIAN [address], [place], [address], [place] [facility] 04/18/2017 15:51:51 12/09/19 14 Caesarean Section completed Shara Sheehan, LARGE ANIMAL HUSBANDRY TECHNICIAN [address], [place], [address], [place] [facility] 08/21/2024 14:33:00 12/09/19 14 delivery completed Rayna Conner [place] - [facility] 04/20/2017 10:39:07 Imaging Results None [...] ation: Acute Bacteria l Sinusiti s - (.4619 00);Prin rylan: 05/04/20 10 Not Available Not [...] nued on: 01/23/20 14 10:08AM; User: [email or web address]; EstDandre Ambrose on: 01/22/20 14;Print ed: 09/23/20 13 Not [...] Updated DateTime 5 165.1 cm 28.8 kg/m2 33490.4 8 g 98 % 84 /min 18 /min 122/76 mm[Hg] Amber Stears [place] - [facility] 5 08:29:08 Social History Question [...] Or The Highest Degree You Have Received? [id number] Information not available 08/21/2024 Have There Been [...] Do You Have A Medical Power Of Molding Plasterer? No Information not available 11/21/2023 What Was The Date Of Your Most Recent Tobacco Screening? 08/22/2025 [email or web address] Information not available 08/22/2025 How Many Children Do You Have? 1 Information not available 07/17/2017 What Is Your Current Pack Years? 10-19packye ars Information not available 11/21/2023 Performs Monthly Self-breast Exam? Yes Information no t available 07/17/2017 Do You Use Protection Against STDs? No [email or web address] Information not available 08/21/2024 What Is Your Relationship Status? Information not available 07/17/2017 Do You Use Your Seat Belt Or Car Seat Routinely? Yes [email or web address] Information not available 08/21/2024 Seat Belts Used Routinely Yes Information not available 07/17/2017 Are You Sexually Active? Yes Information not available 07/17/2017 Do You Have Smoke And Carbon Monoxide Detectors In Your Home? Yes Information not available 11/21/2023 At What Age Did You Start Smoking Tobacco? 13 Information not available 11/21/2023 Are You Passively Exposed To Smoke? No [email or web address] Information no t available 08/21/2024 How Much [...] is your level of alcohol consumption? None [email or web address] Information not available 08/21/2024 Are you able to walk independently without assistance or assistive devices? YESWOREST Information not available 07/17/2017 Do you have difficulty doing errands alone? No Information not available 11/21/2023 What is your occupation? [employer] Information not available 11/21/2023 Mental Status Question Answer Note LastModified by Organizat ion Details LastModified Time Do you feel stressed (tense, restless, nervous, or anxious, or unable to sleep at night)? [id number] [email or web address] Information not available 08/21/2024 Do you have difficulty concentrating, remembering or making decisions? No Information no t available 11/21/2023 Family History Relationship Description Onset Age of this Age Resolved Age Notes LastModified by Organization Details LastModified Time Father Family history of diabetes mellitus [email or web address] Not available 2023 14:32:34 Father Family history of Hypertension [email or web address] Not available 14:32:34 Father Family history of Myocardial infarction Not available 08/21 14:32:34 Father Hypertensive disorder [email or web address] Not available 2023 14:32:34 Paternal Grandfather Family history of diabetes mellitus [email or web address] Not available 2023 14:32:34 Mother Arthritis [email or web address] Not availab le 08/21/2024 14:32:34 Medical History [...] Vaccine Type Date Status Note Provider Nam norberto and Address Organization Details Recorded Time MMR 9 completed Not Available [facility] 09/02/2025 08:14:33 Hep B, adolescent or pediatric 2 completed Not Available [facility] 09/02/2025 08:14:33 Hep B, adolescent or pediatric 2 completed Not Available [facility] 09/02/2025 08:14:33 Td (adult), 2 Lf tetanus toxoid, preservative free, adsorbed 3 completed Not Available [facility] 09/02/2025 08:14:33 Hep B, adolescent or pediatric 3 completed Not Available [facility] 09/02/2025 08:14:33 Tdap 5 completed Not Available [facility] 09/02/2025 08:14:33 COVID-19, mRNA, LNP-S, PF, 50 mcg/0.5 mL dose 2 completed Sandra Gillis null, [place] - [facility] 08/19/2022 13:58:36 influenza, unspecified formulation 4 completed Not Available [facility] 12/04/2023 09:17:39 Influenza, split virus, quadrivalent, PF 2 completed Sandra Gillis null, [place] - [facility] 08/19/2022 10:33:32 COVID-19 vaccine, vector-nr, rS-Ad26, PF, 0.5 mL 1 completed Sandra Gillis null, [place] [facility] 08/19/2022 10:33:32 Past Encounters Encounter ID Performer Location Encounter Start Date Encounter Closed Date Diagnosis/Indication Diagnosis SNOMED-CT Code Diagnosis ICD10 Code Diagnosis IMO Codes Diagnosis Note [id number] Jacqueline Mccall APRN [address] [address] 08/22/2025 09:33:56 08/22/2025 10:22:39 Acute urinary tract infection 828401501 N39.0 136749 increase fluidscran lundy juicewipe front to backvoid after intercours jose luis not hold urineantib iotics as orderedcot ton underwearr eturn if symptoms worsen or do not improve Depressive disorder 1475 3700 F32.A med discussed in detailif issues return or go to ed [id number] Jacqueline Mccall APRN [address] [address] 09/02/2025 08:12:00 09/02/2025 09:05:53 Overweight in adulthood with body mass index of 25 or more but less than 30 606213006 E66.3 Z68.28 9619789462 28.8 Acute abdominal pain 116 958507 R10.9 43794 Gastroesop hageal reflux disease without esophagitis 623018734 K21.9 052062 follow up with gi Nausea 343329000 R11.0 11755 Health Concerns Section Related Observation LastModified by Organization Detai ls LastModified Time None Recorded Concern Status LastModified by Organization Details LastModified Time None Recorded Payers Encounter Date Sequence Insurance Name Policy Number Policy Walsh Covered Member ID Walsh Member ID Guarantor Name 09/02/2025 1 [place] [id number] Zoey A Paul [id number] Zoey A Paul Notes Date Note Type Note Provider Name and Address Organization Details Recorded Time 09/02/2025 text/html ROS as noted in the HPI 35 year old female who presents to the office today with concerns of abdominal pain, random, shooting,black bowel movements yesterdayleft back pain --finished up meds for uti on or nausea yesterdayhx of ulcer Jacqueline Mccall, LARGE ANIMAL HUSBANDRY TECHNICIAN [address], [place], [address], [place] [facility] 09/02/2025 09:02:56 OBGyn Episode No OBEpisode recorded.
--- OUTSIDE RECORDS SUMMARY | 2025-09-18 18:45 | XMS_ITS ---
Author Organization Unknown ENCOUNTERS Encounter Performer Location Date Diagnosis Diagnosis Status Pre Admit [address] [place] [address] [id number] Emergency Jasmin [address] [place] [address] [id number] Emergency [address] [place] [address] [id number] FELIX Pre Admit [address] [place] [address] [id number] Emergency Dillan Cox [address] [place] [address] [id number] FELIX *Note: Encounters from your own facility or health system may be excluded. Allergies, Adverse Reactions, Alerts Allergen Type Severity Identification Date Medications Name Date Quantity Days Supplied [facility] Number
[2025-09-18] MEDS: IOPAMIDOL-370 (76%);100ML BOTTLE 75 ML IV (19:04)
[2025-09-18] MEDS: BELLADONNA ALKALOIDS 60 ML ML PO (20:18)
[2025-09-18] MEDS: KETOROLAC 30MG/ML VIAL 30 MG IV (20:47)
[2025-09-18] MEDS: ACETAMINOPHEN 500MG TAB 1000 MG PO (20:47)
[2025-09-18 22:00] LABS: Troponin I < 0.01 ng/ml (0.00-0.034)
[2025-09-18 22:25] VITALS: BP 132/78; PULSE 74; RESP 18; TEMP 37.1; O2SAT 98
== END 2025-09-18 22:25 | disposition home or self-care (01) ==
PROVIDERS: Emergency Provider Student in an Organized Health Care Education/Training Program; PCP Nurse Practitioner Family
DX: R10.13 Epigastric pain (principal); R07.9 Chest pain, unspecified; R79.89 Other specified abnormal findings of blood chemistry; I10 Essential (primary) hypertension; F17.200 Nicotine dependence, unspecified, uncomplicated; Z79.899 Other long term (current) drug therapy; Z79.84 Long term (current) use of oral hypoglycemic drugs
CPT/HCPCS: 71045; 74177; 80053; 83690; 84484; 84703; 85025; 85378; 93005; 96361; 96374; 96375; 99285; J1885; J2270; J2405; J7030; Q9967